=== PATIENT | male | born 1950 | race Caucasian/White ===

== ENCOUNTER 2016-07-24 14:03 | Emergency (ER) | payer MEDICARE, OTHER ==
[~2016-07-24] VITALS: Ht 172.7 cm; Wt 132.7 kg
[~2016-07-24 14:03] MED LIST: ALBU6.7H INH; CHOL100055 PO; CYCL5TAB PO; DABI150C PO; DICL100G5 TOP; DOXA4TAB3 PO; DULO60CA56 PO; FURO20TA4 PO; LOVA20TA71 PO; MELO-28 PO; METF10002 PO; POTA10TA14 PO
[2016-07-24 14:05] VITALS: Ht 172.7 cm; Wt 132.7 kg
--- OUTSIDE RECORDS SUMMARY | 2016-07-24 14:07 | XMS REPORT ---
Author Author Re Prince Organization [employer] Address Unknown Phone Unavailable Care Team Providers Care Supervisor [employer]ery [employer] Name Role Phone Re Prince CP Unavailable Allergies No Known Allergies Problems Problem Type Condition Code Onset Dates Condition Status Problem Diabetes Mellitus Type 2, not stated as uncontrolled 250.00 Active Problem Unspecified otitis media 382.9 Active Problem Other and unspecified hyperlipidemia 272.4 Active Problem Myalgia M79.1 Active Problem Type 2 diabetes mellitus without complications E11.9 Active Problem Right sided sciatica M54.31 Active Problem Other hyperlipidemia E78.4 Active Problem Other myositis, unspecified site M60.80 Active Problem Essential (primary) hypertension I10 Active Problem Other chronic pain G89.29 Active Problem Depressive disorder, not elsewhere classified 311 Active Problem Other and unspecified hyperlipidemia 272.4 Active Problem Other chronic pain 338.29 Active Problem Fibromyalgia 729.1 Active Problem Hypertension, benign 401.1 Active Medications Medication Code System Code Instructions Start Date End Date Status Dosage Hydrocodone-Acetaminophen [facility] [address]-21 5-325 MG Orally every 12 hrs Jan 31, 2016 Feb 20, 2016 1 tablet as needed Results No Known Results Summary Purpose eClinicalWorks Submission
--- OUTSIDE RECORDS SUMMARY | 2016-07-24 14:07 | XMS REPORT ---
Author Author Mikayla Lagos [facility] eClinical[employer] Address Unknown Phone Unavailable Care Team Providers Care Industrial Chemist Name Role Phone Mikayla Lagos Unavailable Allergies, Adverse Reactions, Alerts Substance Reaction Event Type peniciliin Info Not Available Non Drug Allergy Problems Problem Type Condition Code Onset Dates [...] Problem Other and unspecified hyperlipidemia 272.4 Active Assessment Right sided sciatica M54.31 Active Problem Other chronic pain 338.29 Active Problem Fibromyalgia 729.1 Active Problem Hypertension, benign 401.1 Active Medications Medication Code System Code Instructions Start Date End Date Status Dosage Voltaren [facility] [address]-56 1 % Transdermal up to QID prn Nov 15, 2015 Mar 14, 2016 2-4 grams Doxazosin Mesylate [facility] [address]-70 4MG Orally Once a day June 05, 2014 1 tablet PredniSONE [facility] [address]-01 20 MG Orally Once a day with food or milk Jan 31, 2016 Feb 09, 2016 3 tabs x1 day then 2 tabs x3 days 1 tab x3 days 1/2 tab x 2 days then stop Lovastatin [facility] [address]-10 20MG Orally Once a day 1 tablet with a meal Furosemide [facility] [address]-06 20 MG Orally Once a day August 19, 2014 1 tab Cymbalta [facility] [address]-87 60 MG Orally Once a day June 06, 2012 1 capsule Cyclobenzaprine HCl [facility] [address]-00 5 MG Orally twice a day as needed Jan 31, 2016 Mar 31, 2016 1-2 tabs BID prn Triamcinolone Acetonide [facility] [address]-38 0.5 % Externally Twice a day Dec 10, 2013 1 application to affected area Labetalol HCl [facility] [address]-30 100 MG Orally BID 1 tab Metformin HCl [facility] [address]-51 1000 MG Orally Twice a day Feb 18, 2014 1 tablet with meals ProAir HFA [facility] [address]-68 108 (90 Base) MCG/ACT Inhalation every 4-6 hrs July 14, 2015 2 puffs as needed Pradaxa [facility] [address]-62 150 MG Orally Twice a day 1 capsule Triamcinolone Acetonide [facility] 69907784983 0.5% Externally Twice a day 1 application to affected area Hydrocodone-Acetaminophen [facility] [address]-81 5-325 MG Orally every 12 hrs Jan 31, 2016 Feb 10, 2016 1 tablet as needed Procedures Procedure Coding System Code Date OFFICE VISIT, EST-LOW COMPLEXITY (15 MIN.) CPT-4 90483 Jan 31, 2016 [facility] visit Established Patient CPT-4 G0467 Jan 31, 2016 Vital Signs Date/Time: Jan 31, 2016 Temperature 98.4 F Height 67.5 in Weight 286.0 lbs Blood Pressure Diastolic 94 mm Hg Blood Pressure Systolic 170 mm Hg Cardiac Monitoring Heart Rate 78 /min BMI 44.13 Index Oximetry 98 % Respiratory Rate 16 /min Results No Known Results Summary Purpose eClinicalWorks Submission
--- OUTSIDE RECORDS SUMMARY | 2016-07-24 14:08 | XMS REPORT ---
Author Author Mikayla Lagos [facility] eClinicalWorks Address Unknown Phone Unavailable Care Team Providers Care Electron Microscopist Name Role Phone Mikayla Lagos Unavailable Allergies No Known Allergies Problems Problem Type Condition Code Onset Dates Condition Status Problem Hypertension, benign 401.1 Active Problem Other and unspecified hyperlipidemia 272.4 Active Problem Diabetes Mellitus Type 2, not stated as uncontrolled 250.00 Active Problem Type 2 diabetes mellitus without complications E11.9 Active Problem Essential (primary) hypertension I10 Active Problem Myalgia M79.1 Active Problem Other myositis, unspecified site M60.80 Active Problem Unspecified otitis media 382.9 Active Problem Other chronic pain G89.29 Active Problem Other hyperlipidemia E78.4 Active Problem Fibromyalgia 729.1 Active Problem Depressive disorder, not elsewhere classified 311 Active Problem Other and unspecified hyperlipidemia 272.4 Active Problem Other chronic pain 338.29 Active Medications No Known Medications Results No Known Results Summary Purpose eClinicalWorks Submission
--- OUTSIDE RECORDS SUMMARY | 2016-07-24 14:08 | XMS REPORT ---
Author Author Mikayla Lagos [facility] eClinicalWorks Address Unknown Phone Unavailable Care Team Providers Care Wreath And Garland Maker Name Role Phone Mikayla Lagos Unavailable Allergies [...] Instructions Start Date End Date Status Dosage Metformin HCl [facility] [address]-90 1000 MG Orally Twice a day Feb 18, 2014 1 tablet with meals Results No Known Results Summary Purpose eClinicalWorks Submission
--- OUTSIDE RECORDS SUMMARY | 2016-07-24 14:09 | XMS REPORT | Continuity of Care Document ---
Author Author [facility] Organization [facility] Address Unknown Phone Unavailable Support Name Relationship Address Phone RENALDO MONAE APRN Caregiver [address] [place] [address] Unavailable DANA DREW MD Caregiver [address] [place] [address] [place] [address] Unavailable NISH KERN Next Of Kin Unknown [phone] Insurance Providers Guarantor Luc Kern Address [address] [place] [address] Email [email or web address] Payer Medicare Policy Number [id number] Subscriber's Name Luc Kern Relationship 18 Self Payer Other A Insurance Policy Number [id number] Subscriber's Name Luc Kern Relationship 18 Self Group Number [id number] Advance Directives Directive Response Recorded Date/Time Advanced Directives Type DPOA for Healthcare 01/22/16 10:52am Ordered Resuscitation Status Full Code 08/04/13 4:44pm Chief Complaint and Reason for Visit Chief Complaint Fever Reason for Visit [id number] Problems Active Problems Medical Problem Onset Date Status Suspected DVT (deep vein thrombosis) Unknown Systemic inflammatory response syndrome Unknown Acute Urinary tract infection Unknown Acute Viral syndrome Unknown Acute Past Problems Medical Problem Onset Date Chronic pain of left knee Unknown Syncope Unknown Medications Current Home Medications Medication Dose Units Route Directions Days Qty Instructions Start Date Albuterol Sulfate (Proventil Hfa 90 Mcg/Actuation) 200 Puff/6.7 G Inha 1 Puff Inhalation Every 4 Hours as needed for Shortness Of Air/Wheezing 09/16/15 Cholecalciferol (Vitamin D3) (Vitamin D) 1,000 Unit Capsule 1,000 Unit Oral Daily 09/16/15 Cyclobenzaprine Hcl 5 Mg Tablet 5 Mg Oral Twice A Day as needed for Prn Orders 01/22/16 Dabigatran Etexilate Mesylate (Pradaxa) 150 Mg Capsule 150 Mg Oral Twice A Day 01/22/16 Diclofenac Sodium (Voltaren) 100 Gm Gel..gram. 1 Applic Topically As Needed 09/16/15 Doxazosin Mesylate 4 Mg Tablet 4 Mg Oral Daily 08/04/13 Duloxetine Hcl 60 Mg Capsule.dr 60 Mg Oral Daily 01/22/16 Furosemide 20 Mg Tablet 20 Mg Oral Daily 09/16/15 Lovastatin 20 Mg Tablet 20 Mg Oral Daily 08/04/13 Meloxicam (Mobic) 7.5 Mg Tablet 7.5 Mg Oral Twice A Day 08/04/13 Metformin Hcl 1,000 Mg Tablet 1,000 Mg Oral Twice A Day 10/06/15 Potassium Chloride 10 Meq Tablet.er 10 Meq Oral Daily 10/06/15 Social History Social History Problem Response Recorded Date/Time Onset Date Status Chewing Tobacco Status No 08/05/2013 11:11am Not Applicable Not Applicable Hx Substance Use No 10/06/2015 3:25pm Not Applicable Not Applicable Hx Alcohol Use Y COUPLE TIMES/MONTH 10/06/2015 3:25pm Not Applicable Not Applicable Has the pt used tobacco in the last 12 months No 09/16/2015 5:06pm Not Applicable Not Applicable Tobacco Usage none 09/17/2015 7:21am Not Applicable Not Applicable Query Response Start Date Stop Date Smoking Status Former smoker Hospital Discharge Instructions No hospital discharge instructions. Plan of Care Discharge Date 01/22/16 2:10pm Disposition 01 DISCHARGED HOME, SELF-CARE Condition at Discharge Improved Instructions/Education Provided DI for Viral Syndrome DI for Fever (Symptom) -- Adult Prescriptions See Medication Section Referrals RENALDO MONAE APRN Order Date: 3 Days Address: [address] [place] [address] [phone] Note: FOLLOW UP IN NEXT 2-3 DAYS FOR RE-EVALUATION Additional Instructions/Education 1) DRINK PLENTY OF FLUIDS 2) FOLLOW UP WITH [facility] (Celestino BROWNE) IN NEXT 3-4 DAYS FOR RE-EVALUATION AND FURTHER TREATMENT 3) RETURN TO ER NEEDED FOR WORSENING SYMPTOMS OR FURTHER CONCERNS Care Plan and Goals Physician Care Plan Problem: 1) MYALGIAS 2) LOW BACK PAIN WITH SCIATICA Goal: Follow up with primary care provider Instructions: Take medications and follow care plan as discussed/written Functional Status No functional status results. Allergies, Adverse Reactions, Alerts Allergen Type Severity Reaction Status Last Updated Penicillin Allergy Unknown "RED SKIN" Active 01/22/16 Immunizations Query Response on File Recorded Date/Time Hx Influenza Vaccination Y JAN 2015 09/16/15 5:06pm Hx Pneumococcal Vaccination No 09/16/15 5:06pm Hx Influenza Vaccination Y JAN 2015 09/16/15 5:06pm Vital Signs Acute Vital Signs Vital Response Date/Time Temperature (Fahrenheit) 98.4 deg F (96.8 - 99.1) 01/22/2016 10:40am Temperature (Calculated Celsius) 36.06702 degrees C (36.0 - 37.3) 01/22/2016 10:40am Pulse Rate (adult) 66 bpm (60 - 100) 01/22/2016 10:40am Respiratory Rate 20 breaths/min (10 - 20) 01/22/2016 1:30pm O2 Sat by Pulse Oximetry 97 % (90 - 100) 01/22/2016 10:40am Blood Pressure 184/98 mm Hg 01/22/2016 10:40am Height (Feet) 5 feet 01/22/2016 10:40am Height (Inches) 8.00 inches 01/22/2016 10:40am Weight (Kilograms) 130.300 kg 01/22/2016 10:40am Body Mass Index (BMI) 43.0 01/22/2016 10:40am Results Laboratory Results Test Name Result Units Flags Reference Collection Date/Time Result Date/ Time Comments White Blood Count 10.2 T/MM3 4.5-11.0 01/22/2016 11:19am 01/22/2016 11: 38am Red Blood Count 4.49 M/MM3 L 4.50-5.90 01/22/2016 11:19am 01/22/2016 11: 38am Hemoglobin 13.7 GM/DL 13.5-17.5 01/22/2016 11:19am 01/22/2016 11:38am Hematocrit 42.3 % 41-53 01/22/2016 11:19am 01/22/2016 11:38am Mean Corpuscular Volume 94.2 UM3 80-100 01/22/2016 11:19am 01/22/2016 11:38am Mean Corpuscular Hemoglobin 30.5 UUG 26-34 01/22/2016 11:19am 2015 11:38am Mean Corpuscular Hemoglobin Concent 32.4 GM/DL 31-37 01/22/2016 11:19am 01/22/2016 11:38am RDW Standard Deviation 43.0 FL 36.9-50.2 01/22/2016 11:am 01/22/2016 11:38am Platelet Count 294 T/MM3 130-400 01/22/2016 11:01/22/2016 11:38am Mean Platelet Volume 9.6 UM3 9.4-12.4 01/22/2016 11:am 01/22/2016 11: 38am Neutrophils (%) (Auto) 77.4 % H 33-66 01/22/2016 11:01/22/2016 11: 38am Lymphocytes (%) (Auto) 12.6 % L 23-45 01/22/2016 11:am 01/22/2016 11: 38am Monocytes (%) (Auto) 5.4 % 0-9.0 01/22/2016 11:am 01/22/2016 11:38am Eosinophils (%) (Auto) 4.4 % H 0-4 01/22/2016 11:01/22/2016 11: 38am Basophils (%) (Auto) 0.1 % 0-2 01/22/2016 11:01/22/2016 11:38am Immature Granulocyte % (Auto) 0.1 % 0.0-0.5 01/22/2016 11:am 2015 11:38am Absolute Neutrophils (auto) 7.9 T/MM3 H 1.8-7.7 01/22/2016 11:01/21 11:38am Absolute Lymphocytes (auto) 1.3 T/MM3 1-4.8 01/22/2016 11:am 2015 11:38am Absolute Monocytes (auto) 0.6 T/MM3 0-0.8 01/22/2016 11:am 2015 11:38am Absolute Eosinophils (auto) 0.5 T/MM3 0-0.5 01/22/2016 11:am 2015 11:38am Absolute Basophils (auto) 0.0 T/MM3 0-0.2 01/22/2016 11:am 2015 11:38am Absolute Immature Granulocyte (auto 0.01 T/MM3 0.00-0.03 01/22/2016 11: 19am 01/22/2016 11:38am Icterus Index < 2 0-7 01/22/2016 11:18am 01/22/2016 11:51am Chemistry Specimen Hemolysis < 15 0-25 01/22/2016 11:19am 01/22/2016 12:01pm 0-25: Specimen Exhibited No Hemolysis. Turbidity < 20 0-20 01/22/2016 11:18am 01/22/2016 11:51am Sodium Level 144 MEQ/L 134-144 01/22/2016 11:18am 01/22/2016 11:51am Potassium Level 4.7 MEQ/L 3.6-5 01/22/2016 11:18am 01/22/2016 11:51am Chloride Level 98 MEQ/L 98-107 01/22/2016 11:18am 01/22/2016 11:51am Carbon Dioxide Level 34 MEQ/L H 22-30 01/22/2016 11:18am 01/22/2016 11: 51am Anion Gap 12 MEQ/L 5-15 01/22/2016 11:18am 01/22/2016 11:51am Blood Urea Nitrogen 12.0 MG/DL 9-01/22/2016 11:18am 01/22/2016 11: 51am Creatinine 1.0 MG/DL 0.8-1.5 01/22/2016 11:18am 01/22/2016 11:51am BUN/Creatinine Ratio 12 RATIO 6-26 01/22/2016 11:18am 01/22/2016 11: 51am Glomerular Filtration Rate Calc 75 01/22/2016 11:18am 01/22/2016 11 :51am Glucose Level 135 MG/DL H 75-110 01/22/2016 11:18am 01/22/2016 11:51am Calculated Osmolality 279 MOSM/KG 261-280 01/22/2016 11:18am 2015 11:51am Calcium Level 9.0 MG/DL 8.4-10.2 01/22/2016 11:18am 01/22/2016 11:51am Total Bilirubin 0.40 MG/DL 0.20-1.30 01/22/2016 11:18am 01/22/2016 11: 51am Alkaline Phosphatase 80 U/L 38-126 01/22/2016 11:18am 01/22/2016 11: 51am Total Protein 6.4 G/DL 6.3-8.2 01/22/2016 11:18am 01/22/2016 11:51am Albumin 3.7 G/DL 3.5-5.0 01/22/2016 11:18am 01/22/2016 11:51am Globulin 2.7 G/DL 2.4-3.6 01/22/2016 11:18am 01/22/2016 11:51am Albumin/Globulin Ratio 1.4 RATIO 1.1-2.2 01/22/2016 11:18am 01/22/2016 11:51am Aspartate Amino Transf (AST/SGOT) 17 U/L 17-59 01/22/2016 11:18am 01/21 11:51am Alanine Aminotransferase (ALT/SGPT) 23 U/L 21-72 01/22/2016 11:18am 11:51am Troponin I < 0.012 ng/ml 0-0.12 01/22/2016 11:am 01/22/2016 12:01pm Troponin values with a difference of 55% increase from orginal troponin value represent a true biological DELTA value. (%increase Calc=Orginal Troponin value, divided by subsequent Troponin value, multiplied by 100) Plasma Lactate 1.6 MMOL/L 0.6-2.2 01/22/2016 11:19am 01/22/2016 11: 50am Procalcitonin < 0.05 NG/ML 01/22/2016 11:01/22/2016 12:07pm PCT </=0.5 ng/mL - sepsis not likely; PCT >0.5 and </=2 ng/mL - sepsis possible; PCT >2 ng/mL - sepsis likely; PCT >/=10 ng/mL - systemic inflammatory response - sepsis or septic shock highly indicated. Urine Collection Type [place] 01/22/2016 1:20pm 2015 1:40pm Urine Color YELLOW YELLOW 01/22/2016 1:20pm 01/22/2016 1:40pm Urine Turbidity CLEAR CLEAR 01/22/2016 1:20pm 01/22/2016 1:40pm Urine Specific [place] 1.010 L 1.015-1.025 01/22/2016 1:20pm 2015 1:40pm Urine pH 7.0 5.0-8.0 01/22/2016 1:20pm 01/22/2016 1:40pm Urine Leukocyte Esterase NEGATIVE NEGATIVE 01/22/2016 1:20pm 2015 1:40pm Urine Nitrite NEGATIVE NEGATIVE 01/22/2016 1:20pm 01/22/2016 1:40pm Urine Protein NEGATIVE NEGATIVE 01/22/2016 1:20pm 01/22/2016 1:40pm Urine Glucose (UA) NEGATIVE NEGATIVE 01/22/2016 1:20pm 01/22/2016 1: 40pm Urine Ketones NEGATIVE NEGATIVE 01/22/2016 1:20pm 01/22/2016 1:40pm Urine Urobilinogen 0.2 EU/DL NORMAL 01/22/2016 1:20pm 01/22/2016 1: 40pm Urine Bilirubin NEGATIVE NEGATIVE 01/22/2016 1:20pm 01/22/2016 1: 40pm Urine Blood NEGATIVE NEGATIVE 01/22/2016 1:20pm 01/22/2016 1:40pm Urinalysis Comment MICROSCOPIC NOT IND. 01/22/2016 1:20pm 2015 1:40pm Glucometer 118 mg/dL H 75-110 01/22/2016 11:15am 01/22/2016 11:23am Microbiology Results Procedure Source Organism/Result Collection Date/Time Result Date/Time Result Status Blood Culture Peripheral/Iv Start CULTURE INITIATED - RESULTS PENDING 01/21 11:19am 01/22/2016 11:35am Preliminary Procedures No known history of procedures. Encounters Encounter Location Arrival/Admit Date Discharge/Depart Date Attending Provider Departed Emergency Room [facility] 01/22/16 10:34am 01/22/16 2: 10pm DANA DREW MD Recent Diagnosis
--- NOTE | 2016-07-24 14:25 | NUR ---
PHYSICIAN DR. CAMEJO AT BEDSIDE TO EXAMINE Pt.
[2016-07-24] MEDS ORDERED: MORPHINE SULFATE 4 MG SYRINGE IM ONE (14:30)
[2016-07-24] MEDS ORDERED: ONDANSETRON ODT 4 MG TAB PO ONE (14:30)
--- NOTE | 2016-07-24 15:03 | DI ---
Indication: ITS.REASON: Fall; pain Procedure: SHOULDER RIGHT 2-3 VIEWS: Encounter: Initial Comparison: Chest radiographs 01/22/2016 Technique: Three views of the right shoulder were obtained Findings: Bony mineralization is normal. The visualized osseous structures appear intact with no acute fracture identified. Degenerative arthrosis of the acromioclavicular and glenohumeral joints. The visualized ribs appear intact. The visualized lung appears clear. No focal radiographically apparent soft tissue swelling. No radiopaque foreign body. Impression: Degenerative arthrosis with no acute fracture or malalignment appreciated. .
--- NOTE | 2016-07-24 15:05 | ERPDOC ---
Departure Disposition Decision Date: July 24, 2016 Disposition Decision Time: 15:42 Disposition: 01 DISCHARGED HOME, SELF-CARE Impression Impression Impression: Primary Impression: Shoulder pain, right Chronicity: acute Qualified Codes: M25.511 - Pain in right shoulder Severity: Severe Condition: Improved Seen By: Physician only Referrals: RENALDO MONAE APRN (Family) 1 Week Patient Instructions: Fall Prevention (ED), Shoulder Pain (ED) Problems/Meds/Labs Reviewed?: Yes Medications reviewed and manag: Yes Additional Instructions: We did not find a fracture or evidence of dislocation today. Take naproxen and the muscle relaxer as needed for pain. Ice or heat may also help. Follow up with your doctor. Consider ways to declutter your office and reduce the tripping hazard. Follow up care ordered?: Yes Mental Status: Alert, Oriented Scripts Cyclobenzaprine HCl (Cyclobenzaprine HCl) 10 Mg Tablet 10 MG PO TID Y for MUSCLE SPASM, #40 TAB 0 Refills Prov: JULYHEIDI DO 07/24/16 HPI - Fall/Injury General Chief Complaint: Fall Stated Complaint: FALL/HURT R ARM AND SHOULDER Time Seen by Provider: 14:12 Source: patient Exam Limitations: no limitations HPI - Fall/Injury Initial Comments 66yo man presents to the ER today with right shoulder pain. Pt was working in his study today, tripped over some books, and landed on his right side. Now he has right shoulder pain; he holds his arm against his side to prevent movement and pain. Has fallen several times in his study - says that he frequently knocks over stacks of books Occurred At: home Onset: Rapid Duration: 1 hr Pain Scale: Now & Worst: 8/10 Severity: severe Injuries/Pain Location: upper extremity Context: tripped Loss of Consciousness: no loss of consciousness Modifying Factors: IMPROVES WITH: cold therapy, immobilization, pain medication , WORSE WITH: jarring, movement Associated Symptoms: denies symptoms Hx of Similar Symptoms: No Allergies: Coded Allergies: Penicillins (Verified Allergy, Unknown, "RED SKIN", 07/24/16) Past History Past Medical History Metabolic: diabetes, hypercholesterolemia, hypertension ENMT: sleep apnea Respiratory: COPD, asthma GI: other Male: BPH, kidney stones Neurological: fibromyalgia Musculoskeletal: osteoarthritis Psychological: depression Surgical History General: appendix, colonoscopy, tonsils Reproductive/: other Family History Family PMH: FOUND: other Vaccines Hx Influenza Vaccination: Yes (JAN 2015) Hx Pneumococcal Vaccination: No Social History Sexuality: female partner Household Members: spouse Review of Systems Musculoskeletal General: joint pain, joint swelling, tenderness (Point TTP over AC joint) All other Systems All Other Systems: Reviewed and Negative Physical Exam General General Nourishment: well nourished, well developed, appears stated age, no acute distress, adult, obese General Body Habitus: disheveled Vitals and Pain Weight: Kilograms: 132.700 Height (feet): 5 Height (inches): 8.00 Triage Pain Scale: RN VS reviewed by Provider: Yes Musculoskeletal (brief) Musculoskeletal Brief: FOUND: spasm, tenderness (Over AC joint), NOT FOUND: deformity, loss of motion Musculoskeletal Joint : Side: Right Joint: shoulder Joint Findings: FOUND: ROM limited (2/2 pain), pain, NOT FOUND: deformity, discoloration, instability, laceration, swelling Supervisory Exam Head: atraumatic Eyes: PERRL Nares: no exudate Neck: trachea midline Chest: symmetric Abdomen: non-distended Neurological: no abnormal movements Skin: pink, dry Psychological: alert, appropriate Differential Diagnoses Considering: Contusion, Dislocation, Fracture, Sprain, Strain Progress Results/Orders Orders Procedure Category Date Status Time Morphine Sulfate PHA 07/24/16 Complete (Morphine) 14:30 Ondansetron Odt PHA 07/24/16 Complete (Zofran Odt) 14:30 Shoulder Right 2-3 RAD 07/24/16 Resulted Views 14:28 Humerus Right 2 View RAD 07/24/16 Resulted 15:12 Medications Current ED Medications Morphine Sulfate (Morphine) 4 mg O ONCE IM Last administered on 07/24/16 14:39 ; Start 07/24/16 at 14:30; Stop 07/24/16 at 14:31; Status DC Ondansetron HCl (Zofran Odt) 4 mg O ONCE PO Last administered on 07/24/16 14: 39; Start 07/24/16 at 14:30; Stop 07/24/16 at 14:31; Status DC Progress Progress No acute fx or dislocation. Discussed dx, prognosis, tx, and need for f/u with pt, who voiced understanding. F/u with PCM. Xray Xray #1: Xray: Shoulder R Interpretation: Normal (AC arthrosis without fx or dislocation), Reviewed Written Report Xray #2: Xray: Humerus R Interpretation: Normal, Reviewed Written Report HEIDI CAMEJO DO July 24, 2016 15:05 Written Report Xray #2: Xray: Humerus R Interpretation: Normal, Reviewed Written Report HEIDI CAMEJO DO July 24, 2016 15:05
--- NOTE | 2016-07-24 15:25 | NUR ---
RADIOLOGY Pt TO RADIOLOGY VIA CART.
--- NOTE | 2016-07-24 15:37 | DI ---
Indication: ITS.REASON: fall with pain Procedure: HUMERUS RIGHT 2 VIEW: Encounter: Initial Comparison: Right shoulder radiographs of the same day Technique: Two views of the right humerus were obtained Findings: Bony mineralization is normal. The visualized osseous structures appear intact with no acute fracture identified. The joint spaces are maintained. No focal radiographically apparent soft tissue swelling. No radiopaque foreign body. Impression: No acute fracture or malalignment identified. .
[2016-07-24] MEDS ORDERED: CYCL-375 PO (15:44)
[2016-07-24 15:57] VITALS: BP 149/88; PULSE 78; RESP 16; TEMP 98.2; O2SAT 96
--- NOTE | 2016-07-24 15:57 | NUR ---
DISMISSAL DISMISSAL INSTRUCTIONS WITH RX FOR FLEXERIL 10MG PO. NO FURTHER QUESTIONS AT THIS TIME. PT REPORTS THE PAIN IS A LITTLE BETTER AFTER INJECTIONS. PT LEFT DEPARTMENT AMBUALTORY WITH
== END 2016-07-24 15:57 | disposition home or self-care (01) ==
LOC: ED 14:03
DX: M25.511 Pain in right shoulder (principal); W01.0XXA Fall on same level from slipping, tripping and stumbling without subsequent striking against object, initial encounter; Y93.89 Activity, other specified; Y92.018 Other place in single-family (private) house as the place of occurrence of the external cause; Y99.8 Other external cause status
CPT/HCPCS: 73030; 73060; 96372; 99283; A9270

== ENCOUNTER 2016-12-23 13:36 | Inpatient (IN) ==
--- OUTSIDE RECORDS SUMMARY | 2016-12-23 13:59 | External Medical Summary ---
:1950 Author Organization [employer] Care Team Providers Name Role Phone Demond, Mikayla Provider Role Unavailable Allergies No Known Allergies Problems Problem Type Condition Code Onset Dates Condition Status Problem Other chronic pain 338.29 Active Problem Diabetes Mellitus Type 2, not stated 250.00 Active as uncontrolled Problem Hypertension, benign 401.1 Active Problem Essential (primary) hypertension I10 Active Problem Other chronic pain G89.29 Active Problem Type 2 diabetes mellitus without E11.9 Active complications Problem Unspecified otitis media 382.9 Active Problem Other and unspecified hyperlipidemia 272.4 Active Problem Other hyperlipidemia E78.4 Active Problem Other myositis, unspecified site M60.80 Active Problem Fibromyalgia 729.1 Active Problem Depressive disorder, not elsewhere 311 Active classified Problem Other and unspecified hyperlipidemia 272.4 Active Medications No Known Medications Results No Known Results Summary Purpose [employer] Submission
--- OUTSIDE RECORDS SUMMARY | 2016-12-23 13:59 | External Medical Summary ---
:1950 Author Organization [employer]Works Care Team Providers Name Role Phone Demond Mikayla Provider Role Unavailable Allergies, Adverse Reactions, Alerts Substance Reaction Event Type N.K.D.A. Info Not Available Non Drug Allergy Problems Problem Type Condition Code Onset Dates Condition Status Problem Other chronic pain 338.29 Active Problem Diabetes Mellitus Type 2, not 250.00 Active stated as uncontrolled Problem Hypertension, benign 401.1 Active Problem Essential (primary) hypertension I10 Active Problem Other chronic pain G89.29 Active Problem Type 2 diabetes mellitus without E11.9 Active complications Problem Unspecified otitis media 382.9 Active Problem Other and unspecified 272.4 Active hyperlipidemia Problem Other hyperlipidemia E78.4 Active Problem Other myositis, unspecified site M60.80 Active Assessment Other nonspecific lymphadenitis I88.8 Active Assessment Pain in right shoulder M25.511 Active Problem Fibromyalgia 729.1 Active Assessment encounter for immunization z23 Active Problem Depressive disorder, not elsewhere 311 Active classified Assessment Osteoarthritis of knee, unspecified M17.9 Active Problem Other and unspecified 272.4 Active hyperlipidemia Medications Medication Code Code Instructions Start End Status Dosage System Date Date Meloxicam NDC 49043-7 7.5 MG Orally Jan 19, 1 tablet 234-01 Twice a day 2015 Lovastatin NDC 73311-1 20MG Orally 1 tablet with 928-06 Once a day a meal Cymbalta NDC 80819-0 60 MG Orally May 24 capsule 237-01 Once a day 2012 Doxazosin NDC 84860-3 4MG Orally Once May 24 tablet Mesylate 123-01 a day 2014 Tramadol HCl NDC 36990-6 50 MG Orally Apr 26, 1 tablet as 058-01 BID if needed 2015 needed Metformin HCl NDC 09437-2 1000 MG Orally Feb 18, 1 tablet with 214-01 Twice a day 2013 meals Klor-Con M20 NDC 92835-5 20 MEQ Orally Jan 25, Jan 19, 1 tablet 058-01 Once a day 2014 2015 Furosemide NDC 47660-5 40 MG Orally August 19, 1 tablet in am 299-25 Twice a day 2014 and 1/2 in early afternoon Aspirin NDC 47844-6 325 MG Orally 1 tablet 416-78 Once a day Triamcinolone NDC 50205-5 0.5 % Dec 10, application Acetonide 002-15 Externally 2013 to affected Twice a day area Procedures Procedure Coding System Code Date OFFICE VISIT, EST-LOW COMPLEXITY (15 MIN.) CPT-4 93578 Feb 25, 2015 [facility] visit Established Patient CPT-4 G0467 Feb 25, 2015 Vital Signs Date/Time: Feb 25, 2015 Height 67.5 in Weight 291.12 lbs Temperature 97.9 F Blood Pressure Diastolic 90 mm Hg Blood Pressure Systolic 132 mm Hg Cardiac Monitoring Heart Rate 80 /min BMI 44.92 Index Respiratory Rate 18 /min Results No Known Results Summary Purpose eClinicalWorks Submission
--- OUTSIDE RECORDS SUMMARY | 2016-12-23 13:59 | External Medical Summary ---
:1950 Author Organization [employer] Care Team Providers Name Role Phone Demond, [...] Medications Results No Known Results Summary Purpose [employer] Submission
--- OUTSIDE RECORDS SUMMARY | 2016-12-23 13:59 | External Medical Summary ---
:1950 Author Organization [employer] Care Team Providers Name Role Phone Demond Mikayla Provider Role Unavailable Allergies No Known Allergies Problems Problem Type Condition Code Onset Dates Condition Status Problem Fibromyalgia 729.1 Active Problem Other and unspecified hyperlipidemia 272.4 Active Problem Diabetes Mellitus Type 2, not stated 250.00 Active as uncontrolled Problem Unspecified otitis media 382.9 Active Problem Other and unspecified hyperlipidemia 272.4 Active Problem Depressive disorder, not elsewhere 311 Active classified Problem Hypertension, benign 401.1 Active Problem Other chronic pain 338.29 Active Medications Medication Code System Code Instructions Start Date End Date Status Dosage Cymbalta [facility] 77458-417 60 MG Orally Once June 06 capsule 7-01 a day 2012 Results No Known Results Summary Purpose [employer] [facility] [employer] Submission
--- OUTSIDE RECORDS SUMMARY | 2016-12-23 13:59 | External Medical Summary ---
:1950 Author Organization [employer] Care Team Providers Name Role Phone Demond [...] Instructions Start Date End Date Status Dosage Meloxicam [facility] [address] 7.5 MG Orally Apr 07, 1 tablet -01 Twice a day 2016 Results No Known Results Summary Purpose [employer] Submission
--- OUTSIDE RECORDS SUMMARY | 2016-12-23 13:59 | External Medical Summary ---
:1950 Author Organization [employer] Care Team Providers Name Role Phone Demond, Mikayla Provider Role Unavailable Allergies No Known Allergies Problems Problem Type Condition ICD-9 Code Onset Dates Condition Status Problem Other and unspecified 272.4 Active hyperlipidemia Problem Diabetes Mellitus Type 2, not 250.00 Active stated as uncontrolled Problem Unspecified otitis media 382.9 Active Problem Other and unspecified 272.4 Active hyperlipidemia Problem Hypertension, benign 401.1 Active Problem Other chronic pain 338.29 Active Medications Medication Code System Code Instructions Start End Date Status Dosage Date Tramadol HCl [facility] 185[address]-059 50 MG Orally May 13, Active 1-2 tablets 8-01 every 6 hrs 2014 Vital Signs Date/Time: Dec 10, 2013 Height 67.5 inches Weight 322.8 lbs Temperature 97.9 F Blood Pressure Diastolic 84 mm Hg Blood Pressure Systolic 144 mm Hg Cardiac Monitoring Heart Rate 88 Beats per Minute BMI 49.81 Index Respiratory Rate 16 per Minute Results No Known Results Summary Purpose [employer]ClinicalWorks Submission
--- OUTSIDE RECORDS SUMMARY | 2016-12-23 13:59 | External Medical Summary ---
:1950 Author Organization [employer]ClinicalWorks Care Team Providers Name Role Phone Demond Mikayla Provider Role Unavailable Allergies No Known Allergies Problems Problem Type Condition ICD-9 Code Onset Dates Condition Status Problem Fibromyalgia 729.1 Active Problem Other and unspecified 272.4 Active hyperlipidemia Problem Diabetes Mellitus Type 2, not 250.00 Active stated as uncontrolled Problem Unspecified otitis media 382.9 Active Problem Other and unspecified 272.4 Active hyperlipidemia Problem Depressive disorder, not 311 Active elsewhere classified Problem Hypertension, benign 401.1 Active Problem Other chronic pain 338.29 Active Medications Medication Code System Code Instructions Start Date End Date Status Dosage Flexeril [facility] 301[address]-359 10 MG Orally Once June 26, Oct 24, 1.5 tablet 1-15 a day 2013 2013 Results No Known Results Summary Purpose [employer]ClinicalWorks Submission
--- OUTSIDE RECORDS SUMMARY | 2016-12-23 13:59 | External Medical Summary ---
:1950 Author Organization [employer]ClinicalWorks Care Team Providers Name Role Phone Mikayla Lagos Provider Role Unavailable Allergies No Known Allergies Problems Problem Type Condition ICD-9 Code Onset Dates Condition Status Assessment Viral gastroenteritis 009.3 Active Problem Fibromyalgia 729.1 Active Assessment Other malaise and fatigue 780.79 Active Assessment Hypertension, benign 401.1 Active Problem Other and unspecified 272.4 Active hyperlipidemia Problem Diabetes Mellitus Type 2, not 250.00 Active stated as uncontrolled Problem Unspecified otitis media 382.9 Active Problem Other and unspecified 272.4 Active hyperlipidemia Problem Depressive disorder, not 311 Active elsewhere classified Problem Hypertension, benign 401.1 Active Problem Other chronic pain 338.29 Active Medications Medication Code Code Instructions Start End Status Dosage System Date Date Metformin HCl NDC 24228-9 1000 MG Orally Feb 18, 1 tablet with 214-01 Twice a day 2013 meals Meloxicam NDC 69877-0 7.5 TAKE ONE 228-49 TABLET BY MOUTH TWICE DAILY Triamcinolone NDC 40491-7 0.5 % Dec 10, application Acetonide 002-15 Externally 2013 to affected Twice a day area Zofran NDC 74125-7 4 MG Orally October 05 tab 446-00 every 4-6 hrs 2014 as needed Aspirin NDC 43267-1 325 MG Orally 1 tablet 416-78 Once a day Losartan NDC 63239-0 25 MG Orally May 20, 1 tablet Potassium 123-22 Once a day 2014 Furosemide NDC 65578-5 40 MG Orally August 19, 1 tablet in am 299-25 Twice a day 2014 and 1/2 in early afternoon Cymbalta NDC 42125-5 60 MG Orally May 24 capsule 237-01 Once a day 2012 Doxazosin NDC 80444-1 4MG May TAKE ONE Mesylate 123-01 2014 TABLET BY MOUTH ONCE DAILY Lovastatin NDC 40085-4 20MG Orally 1 tablet with 928-06 Once a day a meal Procedures Procedure Coding System Code Date COMPLETE CBC W/AUTO DIFF WBC CPT-4 11388 October 05, 2014 Results No Known Results Summary Purpose [employer]ClinicalWorks Submission
--- OUTSIDE RECORDS SUMMARY | 2016-12-23 13:59 | External Medical Summary ---
:1950 Author Organization eClinicalWorks Care Team Providers Name Role Phone Re Prince Provider Role Unavailable Allergies No Known Allergies Problems Problem Type Condition Code Onset Dates Condition Status Problem Diabetes Mellitus Type 2, not stated 250.00 Active as uncontrolled Problem Unspecified otitis media 382.9 Active Problem Other and unspecified hyperlipidemia 272.4 Active Problem Myalgia M79.1 Active Problem Type 2 diabetes mellitus without E11.9 Active complications Problem Right sided sciatica M54.31 Active Problem Other hyperlipidemia E78.4 Active Problem Other myositis, unspecified site M60.80 Active Problem Essential (primary) hypertension I10 Active Problem Other chronic pain G89.29 Active Problem Depressive disorder, not elsewhere 311 Active classified Problem Other and unspecified hyperlipidemia 272.4 Active Problem Other chronic pain 338.29 Active Problem Fibromyalgia 729.1 Active Problem Hypertension, benign 401.1 Active Medications Medication Code System Code Instructions Start End Date Status Dosage Date Hydrocodone-Tanmay [facility] 18308-320 5-325 MG Orally Jan 30, Feb 19, 1 tablet taminophen 5-01 every 12 hrs 2015 2015 as needed Results No Known Results Summary Purpose [employer]ClinicalWorks Submission
--- OUTSIDE RECORDS SUMMARY | 2016-12-23 13:59 | External Medical Summary ---
:1950 Author Organization [employer] Care Team Providers Name Role Phone Demond, [...] Medications Results No Known Results Summary Purpose [employer] Submission
--- OUTSIDE RECORDS SUMMARY | 2016-12-23 13:59 | External Medical Summary ---
:1950 Author Organization [employer] Care Team Providers Name Role Phone Demond, [...] Medications Results No Known Results Summary Purpose [employer] Submission
--- OUTSIDE RECORDS SUMMARY | 2016-12-23 13:59 | External Medical Summary ---
[...] Other myositis, unspecified site M60.80 Active Assessment Type 2 diabetes mellitus without E11.9 Active complications Problem Fibromyalgia 729.1 Active Problem Depressive disorder, not elsewhere 311 Active classified Assessment Other hyperlipidemia E78.4 Active Problem Other and unspecified hyperlipidemia 272.4 Active Medications Medication Code Code Instructions Start End Status Dosage System Date Date Tramadol HCl NDC 25312-3 50 MG Orally 1 tablet as 058-01 every 6 hrs needed Klor-Con M20 NDC 72784-1 20 MEQ Orally Jan 25, Jan 19, 1 tablet 058-01 Once a day 2014 2015 Cymbalta NDC 94862-7 60 MG Orally May 24 capsule 237-01 Once a day 2012 Triamcinolone NDC 86985-6 0.5 % Dec 10, 1 application Acetonide 002-15 Externally 2014 to affected Twice a day area Meloxicam NDC 16177-6 7.5 MG Orally Jan 19, 1 tablet 234-01 Twice a day 2015 Furosemide NDC 94890-6 40 MG Orally August 19, 1 tablet in am 299-25 Twice a day 2014 and 1/2 in early afternoon Lovastatin NDC 40952-9 20MG Orally 1 tablet with 928-06 Once a day a meal Doxazosin NDC 67343-3 4MG Orally Once May 24 tablet Mesylate 123-01 a day 2014 Aspirin NDC 12798-9 325 MG Orally 1 tablet 416-78 Once a day Metformin HCl [facility] 82836-1 1000 MG Orally Feb 18, 1 tablet with 214-01 Twice a day 2013 meals Procedures Procedure Coding System Code Date LIPID PANEL CPT-4 07803 Jan 27, 2015 CMP CPT-4 87463 Jan 27, 2015 Results No Known Results Summary Purpose [employer]ClinicalWorks Submission
--- OUTSIDE RECORDS SUMMARY | 2016-12-23 13:59 | External Medical Summary ---
[...] Other myositis, unspecified site M60.80 Active Assessment Pain in left knee M25.562 Active Problem Fibromyalgia 729.1 Active Problem Depressive disorder, not elsewhere 311 Active classified Problem Other and unspecified 272.4 Active hyperlipidemia Medications No Known Medications Results No Known Results Summary Purpose eClinicalWorks Submission
--- OUTSIDE RECORDS SUMMARY | 2016-12-23 13:59 | External Medical Summary | Referral Summary ---
:1950 Author Organization [facility] Address [address] [place] [address] Care Team Providers Name Role Phone DemondMikayla parson Primary Care Physician Encounter VC Date(s): 11/08/15 - 11/08/15 [facility] [address], [place] [address] Discharge Disposition: 01-Home or Self Care Attending Physician: Truong Greer MD Vital Signs Most recent to oldest [Reference Range]: 1 Peripheral Pulse Rate [60-100 bpm] 77 bpm (11/08/15 1:19 PM) Heart Rate Monitored [60-100 bpm] 76 bpm (11/08/15 2:29 PM) Respiratory Rate [14-20 br/min] 16 br/min (11/08/15 2:29 PM) Blood Pressure [90-140/60-90 mmHg] 132/72 mmHg (11/08/15 2:29 PM) SpO2 97 % (11/08/15 2:29 PM) Remote Telemetry Discontinued (11/08/15 2:29 PM) Problem List No data available for this section Allergies, Adverse Reactions, Alerts Substance Reaction Severity Status penicillin Active Medications aspirin 325 mg oral tablet 325 mg 1 tabs, Oral, Daily, # 30 tabs, 0 Refill(s) Start Date: 11/08/15 Status: OrderedCymbalta 60 mg oral delayed release capsule 60 mg 1 caps, Oral, Daily, do not crush or chew, 0 Refill(s) Start Date: 11/08/15 Status: Orderedfurosemide 40 mg oral tablet 40 mg 1 tabs, Oral, Daily, # 30 tabs, 0 Refill(s) Start Date: 11/08/15 Status: Orderedlovastatin 20 mg oral tablet 20 mg 1 tabs, Oral, Daily, # 30 tabs, 0 Refill(s) Start Date: 11/08/15 Status: Orderedmeloxicam 7.5 mg oral tablet 7.5 mg 1 tabs, Oral, Daily, # 30 tabs, 0 Refill(s) Start Date: 11/08/15 Status: OrderedmetFORMIN 1000 mg oral tablet 1,000 mg 1 tabs, Oral, BID, # 180 tabs, 0 Refill(s) Start Date: 11/08/15 Status: Orderedpotassium chloride 10 mEq oral tablet, extended release 10 mEq 1 tabs, Oral, BID, # 180 tabs, 0 Refill(s) Start Date: 11/08/15 Status: OrderedProAir HFA 90 mcg/inh inhalation aerosol 2 puffs, Inhalation, q4hr, as needed for wheezing, # 8.5 g, 0 Refill(s) Start Date: 11/08/15 Status: OrderedtraMADol 50 mg oral tablet 50 mg 1 tabs, Oral, q4hr, as needed for pain, 0 Refill(s) Start Date: 11/08/15 Status: OrderedVoltaren 1% topical gel 1 nicko, Topical, QID, # 100 g, 0 Refill(s) Start Date: 11/08/15 Status: Ordered Results No data available for this section Immunizations Vaccine Date Refusal Reason influenza virus vaccine, live 01/22/08 Procedures Procedure Date Related Diagnosis Body Site Tilt Table1 11/08/15 1auto-populated from documented surgical case Social History No data available for this section Assessment and Plan No data available for this section
--- OUTSIDE RECORDS SUMMARY | 2016-12-23 13:59 | External Medical Summary ---
:1950 Author Organization eClinicalWorks Care Team Providers Name Role Phone Mikayla Lagos Provider Role Unavailable Allergies, Adverse Reactions, Alerts [...] myositis, unspecified site M60.80 Active Assessment Other myositis, unspecified site M60.80 Active Assessment Other hyperlipidemia E78.4 Active Assessment Edema 782.3 Active Assessment Type 2 diabetes mellitus without E11.9 Active complications Problem Fibromyalgia 729.1 Active Assessment Other chronic pain G89.29 Active Problem Depressive disorder, not elsewhere 311 Active classified Assessment Essential (primary) hypertension I10 Active Problem Other and unspecified hyperlipidemia 272.4 Active Medications Medication Code Code Instructions Start End Status Dosage System Date Date Metformin HCl NDC 64231-5 1000 MG Orally Feb 18, tablet with 214- Twice a day 2013 meals Triamcinolone NDC 48061-3 0.5 % Dec 10 application Acetonide 002-15 Externally 2014 to affected Twice a day area Cymbalta NDC 40986-5 60 MG Orally May 24 capsule 237-01 Once a day 2012 Meloxicam NDC 51494-7 7.5 MG Orally Jan 19 tablet 234-01 Twice a day 2015 Klor-Con M20 NDC 90734-1 20 MEQ Orally Jan 25, Jan 19, tablet 058-01 Once a day 2014 2015 Doxazosin NDC 40361-1 4MG Orally Once May 24 tablet Mesylate 123-01 a day 2014 Aspirin NDC 57263-9 325 MG Orally 1 tablet 416-78 Once a day Tramadol HCl NDC 71004-1 50 MG Orally 1 tablet as 058-01 every 6 hrs needed Furosemide NDC 40683-2 40 MG Orally August 19, 1 tablet in am 299-25 Twice a day 2014 and 1/2 in early afternoon Lovastatin NDC 98754-4 20MG Orally 1 tablet with 928-06 Once a day a meal Procedures Procedure Coding System Code Date OFFICE VISIT, EST-LOW COMPLEXITY (15 MIN.) CPT-4 27304 Jan 25, 2015 HEMOGLOBIN A1C, IN HOUSE CPT-4 52959 Jan 25, 2015 [facility] Establ[facility] Patient CPT-4 G0467 Jan 25, 2015 Vital Signs Date/Time: Jan 25, 2015 Height 67.5 in Weight 303.4 lbs Temperature 98.8 F Blood Pressure Diastolic 82 mm Hg Blood Pressure Systolic 123 mm Hg Cardiac Monitoring Heart Rate 92 /min BMI 46.81 Index Respiratory Rate 14 /min Results Name Result Date Reference Range Unit Abnormality Flag In House HB A1c Summary Purpose eClinicalWorks Submission
--- OUTSIDE RECORDS SUMMARY | 2016-12-23 13:59 | External Medical Summary ---
:1950 Author Organization [employer] Care Team Providers Name Role Phone Demond [...] Start Date End Date Status Dosage Cymbalta [facility] 645[address]-109 60 MG Orally Once June 06 capsule 7-01 a day 2012 Results No Known Results Summary Purpose [employer] Submission
--- OUTSIDE RECORDS SUMMARY | 2016-12-23 13:59 | External Medical Summary ---
:1950 Author Organization [employer] Care Team Providers Name Role Phone Demond [...] Instructions Start Date End Date Status Dosage Furosemide [facility] [address] 40 MG Orally Once August 19, tablet -25 a day 2014 Results No Known Results Summary Purpose [employer] Submission
--- OUTSIDE RECORDS SUMMARY | 2016-12-23 13:59 | External Medical Summary ---
[...] Hypertension, benign 401.1 Active Medications Medication Code Code Instructions Start End Status Dosage System Date Date Rubi [facility] [address]-21 1 % Nov 14Feb 2-4 grams Transdermal up 2015, to QID prn [address] [facility] [address]-24 4MG Orally May 24 tablet Mesylate Once a day [address] [facility] [address]-43 20 MG Orally Jan 30, Jan 3 tabs x1 day Once a day 2015 16, then 2 tabs with food or 2015 x3 days 1 tab milk x3 days 1/2 tab x 2 days then stop Lovastatin [facility] [address]-90 20MG Orally 1 tablet with Once a day a meal Furosemide [facility] [address]-23 20 MG Orally August 19, 1 tab Once a day [address] [facility] [address]-25 60 MG Orally May 24 capsule Once a day [address] [facility] [address]-01 5 MG Orally Jan 30, Mar 1-2 tabs BID HCl twice a day as 2015 06, prn needed [address] [facility] [address]-50 0.5 % Sept 1 application Acetonide Externally 17, to affected Twice a day 2013 area Labetalol HCl [facility] [address]-72 100 MG Orally 1 tab BID Metformin HCl [facility] [address]-38 1000 MG Orally Feb 18, 1 tablet with Twice a day 2013 meals ProAir HFA [facility] [address]-15 108 (90 Base) June 25 puffs as MCG/ACT 20, needed Inhalation 2015 every 4-[address] [facility] [address]-06 150 MG Orally 1 capsule Twice a day Triamcinolone [facility] 67621036618 0.5% 1 application Acetonide Externally to affected Twice a day area Hydrocodone-Aceta [facility] [address]-59 5-325 MG Jan 30Jan 1 tablet as minophen Orally every 2015 17, needed 12 hrs 2016 Procedures Procedure Coding System Code Date OFFICE VISIT, EST-LOW COMPLEXITY (15 MIN.) CPT-4 20099 Jan 31, 2016 [facility] visit Established Patient CPT-4 G0467 Jan 31, [...]
--- OUTSIDE RECORDS SUMMARY | 2016-12-23 13:59 | External Medical Summary ---
[...] End Date Status Dosage Date Tramadol HCl [facility] 20003-366 50 MG Orally at June 06, Active 1-2 tablets 8-2014 Vital Signs Date/Time: Dec 10, 2013 Height 67.5 inches Weight 322.8 lbs Temperature 97.9 F Blood Pressure Diastolic 84 mm Hg Blood Pressure Systolic 144 mm Hg Cardiac Monitoring Heart Rate 88 Beats per Minute BMI 49.81 Index Respiratory Rate 16 per Minute Results No Known Results Summary Purpose eClinicalWorks Submission
--- OUTSIDE RECORDS SUMMARY | 2016-12-23 13:59 | External Medical Summary ---
[...] unspecified hyperlipidemia 272.4 Active Medications Medication Code System Code Instructions Start End Date Status Dosage Date Cholecalciferol [facility] 91621-78 [address] UNIT July 14September 12, capsule 62-01 Orally once a 2015 2015 WEEK for 8 weeks Results No Known Results Summary Purpose eClinicalWorks Submission
--- OUTSIDE RECORDS SUMMARY | 2016-12-23 13:59 | External Medical Summary ---
[...] Instructions Start End Date Status Dosage Date Metformin HCl [facility] 10734-257 1000 MG Orally Feb 18, 1 tablet 4-01 Twice a day 2013 with meals Results No Known Results Summary Purpose eClinicalWorks Submission
--- OUTSIDE RECORDS SUMMARY | 2016-12-23 13:59 | External Medical Summary ---
[...] Start End Status Dosage System Date Date Triamcinolone NDC 57450-7 0.5 % Dec 10, application Acetonide 002-15 Externally 2013 to affected Twice a day area Aspirin NDC 19311-0 325 MG Orally 1 tablet 416-78 Once a day Meloxicam NDC 74171-4 7.5 MG Orally Jan 19, 1 tablet 234-01 Twice a day 2015 Metformin HCl NDC 52897-0 1000 MG Orally Feb 18, 1 tablet with 214-01 Twice a day 2014 meals Doxazosin NDC 98560-9 4MG Orally Once May 24 tablet Mesylate 123-01 a day 2014 Furosemide NDC 68086-1 40 MG Orally August 19, 1 tablet in am 299-25 Twice a day 2014 and 1/2 in early afternoon Tramadol HCl NDC 43819-7 50 MG Orally 1 tablet as 058-01 every 6 hrs needed Lovastatin NDC 04208-0 20MG Orally 1 tablet with 928-06 Once a day a meal Cymbalta NDC 32371-9 60 MG Orally May 24 capsule 237-01 Once a day 2012 Klor-Con M20 [facility] 63749-1 20 MEQ Orally Jan 25, Jan 19, 1 tablet 058-01 Once a day 2014 2015 Procedures Procedure Coding System Code Date COMPLETE CBC W/AUTO DIFF WBC CPT-4 35786 Jan 27, 2015 Results No Known Results Summary Purpose eClinicalWorks Submission
--- OUTSIDE RECORDS SUMMARY | 2016-12-23 14:00 | External Medical Summary ---
:1950 Author Organization eClinicalWorks Care Team Providers Name Role Phone Demond Mikayla Provider Role Unavailable Allergies, Adverse Reactions, Alerts Substance Reaction Event Type Lortab upset stomach Drug Allergy Problems Problem Type Condition ICD-9 Code Onset Dates Condition Status Assessment Edema 782.3 Active Problem Fibromyalgia 729.1 Active Assessment Hypertension, benign 401.1 Active Assessment Hypertrophy (benign) of prostate 600.00 Active without urinary obstruction and other lower urinary tract symptoms [LUTS] Problem Other and unspecified 272.4 Active hyperlipidemia [...] Dosage System Date Date Tramadol HCl NDC 86688-2 50 MG Orally 1 tablet as 058-01 every 6 hrs needed Aspirin NDC 23972-1 325 MG Orally 1 tablet 416-78 Once a day Meloxicam NDC 25495-2 7.5 TAKE ONE 228-49 TABLET BY MOUTH TWICE DAILY Metformin HCl NDC 28464-3 1000 MG Orally Feb 18, 1 tablet with 214-01 Twice a day 2013 meals Doxazosin NDC 00805-7 4MG May TAKE ONE Mesylate 123-01 2014 TABLET BY MOUTH ONCE DAILY Lovastatin NDC 92396-9 20MG Orally 1 tablet with 928-06 Once a day a meal Furosemide NDC 10390-0 40 MG Orally August 19, 1 tablet in am 299-25 Twice a day 2014 and 1/2 in early afternoon Triamcinolone NDC 02654-7 0.5 % Dec 10, application Acetonide 002-15 Externally 2013 to affected Twice a day area Cymbalta NDC 21137-5 60 MG Orally May 1 capsule 237-01 Once a day 2012 Procedures Procedure Coding System Code Date OFFICE VISIT, EST-LOW COMPLEXITY (15 MIN.) CPT-4 05040 October 15, 2014 [facility] visit Established Patient CPT-4 G0467 October 15, 2014 Vital Signs Date/Time: October 15, 2014 Height 67.5 in Weight 300 lbs Temperature 97.8 F Blood Pressure Diastolic 70 mm Hg Blood Pressure Systolic 110 mm Hg Cardiac Monitoring Heart Rate 80 /min BMI 46.29 Index Respiratory Rate 22 /min Results No Known Results Summary Purpose eClinicalWorks Submission
--- OUTSIDE RECORDS SUMMARY | 2016-12-23 14:00 | External Medical Summary ---
[...] 2 diabetes mellitus without E11.9 Active complications Assessment Shortness of breath R06.02 Active Assessment Essential (primary) hypertension I10 Active Problem Fibromyalgia 729.1 Active Assessment Other hyperlipidemia E78.4 Active Problem Depressive disorder, not elsewhere 311 Active classified Assessment Other chronic pain G89.29 Active Problem Other and unspecified hyperlipidemia 272.4 Active Medications Medication Code Code Instructions Start End Date Status Dosage System Date Meloxicam NDC 61634-2 7.5 MG Orally Jan 19 tablet 234-01 Twice a day 2015 Triamcinolone NDC 10051-7 0.5 % Dec 10 application Acetonide 002-15 Externally 2013 to affected Twice a day area Tramadol HCl NDC 47555-9 50 MG Orally June 24 tablet as 058-01 BID if needed 2015 needed Doxazosin NDC 67825-0 4MG Orally Once May 24 tablet Mesylate 123-01 a day 2014 Furosemide NDC 26858-7 20 MG Orally August 19 in the 297-25 Twice a day as 2014 morning and needed mid-afternoon prn Voltaren NDC 12025-3 1 % Transdermal Apr 29October 11, 2-4 grams 215-05 QID prn 2015 2015 [place] [address]-1 60 MG Orally May 24 capsule 237-01 Once a day 2012 [place] [address]-1 108 (90 Base) June 25 puffs as 851-85 MCG/ACT 2015 needed Inhalation every 4-6 hrs [place] NDC 61920-8 20 MG Orally June 24 tablet 039-37 Once a day 2015 [place] [address]-6 1000 MG Orally Feb 18, 1 tablet with 214-01 Twice a day 2013 meals Lovastatin NDC 58913-3 20MG Orally 1 tablet with 928-06 Once a day a meal Procedures Procedure Coding System Code Date OFFICE VISIT, EST-MOD. COMPLEXITY (25 MIN) CPT-4 61616 July 14, 2015 [facility] visit Established Patient CPT-4 G0467 July 14, 2015 Vital Signs Date/Time: July 14, 2015 Temperature 97.7 F Height 97.5 in Weight 297.8 lbs Blood Pressure Diastolic 83 mm Hg Blood Pressure Systolic 124 mm Hg Cardiac Monitoring Heart Rate 91 /min BMI 22.02 Index Respiratory Rate 16 /min Results No Known Results Summary Purpose eClinicalWorks Submission
--- OUTSIDE RECORDS SUMMARY | 2016-12-23 14:00 | External Medical Summary ---
:1950 Author Organization [employer] Care Team Providers Name Role Phone Demond, [...] Medications Results No Known Results Summary Purpose [employer] Submission
--- OUTSIDE RECORDS SUMMARY | 2016-12-23 14:00 | External Medical Summary ---
[...] Active Assessment Other nonspecific lymphadenitis I88.8 Active Problem Fibromyalgia 729.1 Active Problem Depressive disorder, not elsewhere 311 Active classified Problem Other and unspecified hyperlipidemia 272.4 Active Medications Medication Code Code Instructions Start End Status Dosage System Date Date Meloxicam NDC 78448-8 7.5 MG Orally Jan 19, 1 tablet 234-01 Twice a day 2015 Metformin HCl NDC 41552-3 1000 MG Orally Feb 18, 1 tablet with 214-01 Twice a day 2014 meals Tramadol HCl NDC 66946-4 50 MG Orally Apr 26, 1 tablet as 058-01 BID if needed 2015 needed Furosemide NDC 44815-3 40 MG Orally August 19, 1 tablet in am 299-25 Twice a day 2014 and 1/2 in early afternoon Triamcinolone NDC 43249-2 0.5 % Dec 10, 1 application Acetonide 002-15 Externally 2014 to affected Twice a day area Cymbalta NDC 11973-6 60 MG Orally May 24 capsule 237-01 Once a day 2012 Klor-Con M20 NDC 94606-6 20 MEQ Orally Jan 25, Jan 19, 1 tablet 058-01 Once a day 2014 2015 Doxazosin NDC 28427-6 4MG Orally Once May 24 tablet Mesylate 123-01 a day 2014 Aspirin NDC 61508-1 325 MG Orally 1 tablet 416-78 Once a day Lovastatin [facility] 28238-1 20MG Orally 1 tablet with 928-06 Once a day a meal Procedures Procedure Coding System Code Date SED RATE CPT-4 43363 Feb 25, 2015 COMPLETE CBC W/AUTO DIFF WBC CPT-4 95323 Feb 25, 2015 Results No Known Results Summary Purpose eClinicalWorks Submission
--- OUTSIDE RECORDS SUMMARY | 2016-12-23 14:00 | External Medical Summary ---
[...] Start End Date Status Dosage System Date Metformin HCl NDC 20904-4 1000 MG Orally Feb 18, 1 tablet with 214-01 Twice a day 2013 meals Lovastatin NDC 24420-3 20MG Orally 1 tablet with 928-06 Once a day a meal Voltaren NDC 88443-2 1 % Transdermal Apr 29October 11, 2-4 grams 215-05 QID prn 2015 2015 Tramadol HCl NDC 49280-8 50 MG Orally June 24 tablet as 058-01 BID if needed 2015 needed Triamcinolone NDC 35099-4 0.5 % Dec 10 application Acetonide 002-15 Externally 2013 to affected Twice a day area [place]ardis NDC 58157-7 20 MG Orally June 24 tablet 039-37 Once a day 2015 Cymbalta NDC 61884-0 60 MG Orally May 24 capsule 237-01 Once a day 2012 Meloxicam NDC 80190-4 7.5 MG Orally Jan 19 tablet 234-01 Twice a day 2015 ProAir HFA [facility] 75704-8 108 (90 Base) June 25 puffs as 851-85 MCG/ACT 2015 needed Inhalation every 4-6 hrs Doxazosin [facility] 68546-3 4MG Orally Once May 24 tablet Mesylate 123-01 a day 2014 Furosemide [facility] 01571-4 20 MG Orally August 19, in the 297- Twice a day as 2014 morning and needed mid-afternoon prn Procedures Procedure Coding System Code Date VITAMIN D 25 HYDROXY CPT-4 49482 July 14, 2015 FOLATE- VIT B12 AND FOLATE CPT-4 48539 July 14, 2015 HEMOGLOBIN A1C, IN HOUSE CPT-4 90310 July 14, 2015 VITAMIN B12 CPT-4 67162 July 14, 2015 Results Name Result Date Reference Range Unit Abnormality Flag Vitamin D, 25-Hydroxy ----25-Hydroxy D Total 10 20150714 30-74 ng/mL L ----25-Hydroxy D2 <7 10456053 ng/mL ----25-Hydroxy D3 10 00718885 ng/mL In House HB A1c ----Hemoglobin A1c 7.0 78399885 Vitamin B12 and Folate ----Folate 10.2 39092106 7.0-31.4 ng/mL ----Vitamin B12 302 08274972 213-816 pg/mL Summary Purpose eClinicalWorks Submission
--- OUTSIDE RECORDS SUMMARY | 2016-12-23 14:00 | External Medical Summary ---
[...] lymphadenitis I88.8 Active Problem Fibromyalgia 729.1 Active Assessment Other hyperlipidemia E78.4 Active Problem Depressive disorder, not elsewhere 311 Active classified Assessment Essential (primary) hypertension I10 Active Problem Other and unspecified hyperlipidemia 272.4 Active Medications Medication Code Code Instructions Start End Status Dosage System Date Date Aspirin NDC 68505-0 325 MG Orally 1 tablet 416-78 Once a day Triamcinolone NDC 56973-6 0.5 % Dec 10, 1 application Acetonide 002-15 Externally 2013 to affected Twice a day area Klor-Con M20 NDC 51063-9 20 MEQ Orally Jan 25, Jan 19, 1 tablet 058-01 Once a day 2014 2015 Furosemide NDC 47838-1 40 MG Orally August 19, 1 tablet in am 299-25 Twice a day 2014 and 1/2 in early afternoon Voltaren NDC 02379-3 1 % Transdermal Apr 29August small amount 215-05 every 4 hours 2015 Metformin HCl NDC 50656-2 1000 MG Orally Feb 18, 1 tablet with 214-01 Twice a day 2013 meals Cymbalta NDC 59627-5 60 MG Orally May 24 capsule 237-01 Once a day 2012 Lovastatin NDC 96578-9 20MG Orally 1 tablet with 928-06 Once a day a meal Doxazosin NDC 54162-8 4MG Orally Once May 24 tablet Mesylate 123-01 a day 2014 Meloxicam NDC 07405-4 7.5 MG Orally Jan 19 tablet 234-01 Twice a day 2015 Procedures Procedure Coding System Code Date COMPREHENSIVE METABOLIC PANEL CPT-4 72925 Apr 29, 2015 SED RATE CPT-4 62623 Apr 29, 2015 COMPLETE CBC W/AUTO DIFF WBC CPT-4 57368 Apr 29, 2015 LIPID PANEL CPT-4 77033 Apr 29, 2015 TSH CPT-4 46750 Apr 29, 2015 Results No Known Results Summary Purpose eClinicalWorks Submission
--- OUTSIDE RECORDS SUMMARY | 2016-12-23 14:00 | External Medical Summary ---
:1950 Author Organization eClinicalWorks Care Team Providers Name Role Phone Demond Mikayla Provider Role Unavailable Allergies No Known Allergies Problems Problem Type Condition Code Onset Dates Condition Status Problem Hypertension, benign 401.1 Active Problem Other and unspecified hyperlipidemia 272.4 Active Problem Diabetes Mellitus Type 2, not stated 250.00 Active as uncontrolled Problem Type 2 diabetes mellitus without E11.9 Active complications Problem Essential (primary) hypertension I10 Active Problem [...]
--- OUTSIDE RECORDS SUMMARY | 2016-12-23 14:00 | External Medical Summary ---
[...] Other myositis, unspecified site M60.80 Active Assessment Abdominal pain in male R10.9 Active Problem Fibromyalgia 729.1 Active Problem Depressive disorder, not elsewhere 311 Active classified Assessment Acute cystitis with hematuria N30.01 Active Problem Other and unspecified hyperlipidemia 272.4 Active Medications Medication Code Code Instructions Start End Status Dosage System Date Date Furosemide NDC 17674-2 20 MG Orally August 19 in the 297-25 Twice a day as 2014 morning and needed mid-afternoon prn Ondansetron NDC 43339-5 4 MG Orally September 19 tab 301-19 every 4-6 hrs 2015 dissolved prn nausea Doxazosin NDC 74082-0 4MG Orally Once May 24 tablet Mesylate 123-01 a day 2014 ProAir HFA NDC 20575-7 108 (90 Base) June 25 puffs as 851-85 MCG/ACT 2015 needed Inhalation every 4-6 hrs Triamcinolone NDC 40113-1 0.5 % Dec 10 application Acetonide 002-15 Externally 2014 to affected Twice a day area Meloxicam NDC 22654-7 7.5 MG Orally Jan 19, tablet 234-01 Twice a day 2015 Potassium NDC 50931-6 20 MEQ Orally 1 tablet Chloride Lexii ER 718-01 Every other day Cipro NDC 86055-7 500 MG Orally 1 tablet 754-01 every 12 hrs Lovastatin NDC 41027-1 20MG Orally 1 tablet with 928-06 Once a day a meal Cymbalta NDC 29262-0 60 MG Orally May 1 capsule 237-01 Once a day 2012 Metformin HCl NDC 33008-4 1000 MG Orally Feb 18, 1 tablet with 214-01 Twice a day 2013 [place] [address]-8 1 % Transdermal Apr 29September 2-4 grams 215-05 QID prn 2015 Procedures Procedure Coding System Code Date [facility] visit Established Patient CPT-4 G0467 September 20, 2015 OFFICE VISIT, EST-LOW COMPLEXITY (15 MIN.) CPT-4 75212 September 20, 2015 URINALYSIS, IN HOUSE CPT-4 55719 September 20, 2015 Vital Signs Date/Time: September 20, 2015 Temperature 99.1 F Height 97.5 in Weight 292.8 lbs Blood Pressure Diastolic 80 mm Hg Blood Pressure Systolic 150 mm Hg Cardiac Monitoring Heart Rate 92 /min BMI 21.65 Index Respiratory Rate 16 /min Results Name Result Date Reference Range Unit Abnormality Flag In House Urinalysis, automated ----PRO neg [id number] ----pH 7.0 20150920 ----BLO neg [id number] ----SG 1.020 20150920 ----KET 40 [id number] ----MAG neg [id number] ----Color yellow 20150920 ----URO 0.2 [id number] ----Clarity clear [id number] ----GLU neg [id number] ----NIT neg [id number] ----LIVAN neg [id number] X ray : Abdomen, Kidneys, Ureters, and Bladder (KUB) with upright films Summary Purpose eClinicalWorks Submission
--- OUTSIDE RECORDS SUMMARY | 2016-12-23 14:00 | External Medical Summary ---
:1950 Author Organization eClinicalWorks Care Team Providers Name Role Phone Winston Anders Provider Role Unavailable Allergies, Adverse Reactions, Alerts [...] Other myositis, unspecified site M60.80 Active Assessment Hypokalemia E87.6 Active Assessment Pain in left knee M25.562 Active Problem Fibromyalgia 729.1 Active Assessment Osteoarthritis of knee, unspecified M17.9 Active Problem Depressive disorder, not elsewhere 311 Active classified Assessment Syncope and collapse R55 Active Problem Other and unspecified 272.4 Active hyperlipidemia Medications Medication Code Code Instructions Start End Status Dosage [place] [address]-1 60 MG Orally May 24 capsule 237-01 Once a day 2012 Triamcinolone NDC 31828-6 0.5 % Dec 10 application Acetonide 002-15 Externally 2013 to affected Twice a day area Potassium NDC 65906-3 20 MEQ Orally 2 tablets Chloride Lexii ER 718-01 Every day Cipro NDC 17915-1 500 MG Orally 1 tablet 754-01 every 12 hrs Ondansetron NDC 56178-3 4 MG Orally September 19 tab 301-19 every 4-6 hrs 2015 dissolved prn nausea Metformin HCl NDC 42000-4 1000 MG Orally Feb 18, tablet with 214-01 Twice a day 2013 meals [place] NDC 47967-9 5-325 MG Orally October 07 tablet as 913-01 every 6 hrs 2015 needed for pain Voltaren NDC 09419-2 1 % Transdermal Apr 29September 2-4 grams 215-05 QID prn 2015 [place] [address]-2 4MG Orally Once May 24 tablet Mesylate 123-01 a day 2014 ProAir HFA NDC 18410-0 108 (90 Base) June 25 puffs as 851-85 MCG/ACT 2015 needed Inhalation every 4-6 hrs Lovastatin NDC 93180-4 20MG Orally 1 tablet with 928-06 Once a day a meal Furosemide NDC 65678-3 20 MG Orally August 19, 1 in the 297-25 Twice a day as 2014 morning and needed [place] [address]-0 7.5 MG Orally Jan 19, tablet 234-01 Twice a day 2015 Procedures Procedure Coding System Code Date OFFICE VISIT, EST-LOW COMPLEXITY (15 MIN.) CPT-4 61228 October 08, 2015 [facility] visit Established Patient CPT-4 G0467 October 08, 2015 Vital Signs Date/Time: October 08, 2015 Temperature 97.4 F Height 67.5 in Weight 246.8 lbs Blood Pressure Diastolic 84 mm Hg Blood Pressure Systolic 138 mm Hg Cardiac Monitoring Heart Rate 98 /min BMI 38.08 Index Oximetry 96 % Respiratory Rate 20 /min Results No Known Results Summary Purpose eClinicalWorks Submission
--- OUTSIDE RECORDS SUMMARY | 2016-12-23 14:00 | External Medical Summary ---
[...] Other myositis, unspecified site M60.80 Active Assessment Elevated prostate specific antigen R97.2 Active [PSA] Problem Fibromyalgia 729.1 Active Assessment Syncope and collapse R55 Active Problem Depressive disorder, not elsewhere 311 Active classified Assessment Osteoarthritis of knee, unspecified M17.9 Active Problem Other and unspecified hyperlipidemia 272.4 Active Medications Medication Code Code Instructions Start End Status Dosage System Date Date Cipro NDC 22639-8 500 MG Orally 1 tablet 754-01 every 12 hrs Meloxicam NDC 27100-8 7.5 MG Orally Jan 19 tablet 234-01 Twice a day 2015 Cymbalta NDC 80926-2 60 MG Orally May 24 capsule 237-01 Once a day 2012 [place] NDC 84782-8 5-325 MG Orally October 07 tablet as 913-01 every 6 hrs 2015 needed for pain Triamcinolone NDC 19302-6 0.5 % Dec 10, application Acetonide 002-15 Externally 2013 to affected Twice a day area Furosemide NDC 64863-9 20 MG Orally August 19, in the 297-25 Twice a day as 2014 morning and needed mid-afternoon prn Metformin HCl NDC 65238-6 1000 MG Orally Feb 18, 1 tablet with 214-01 Twice a day 2013 meals Lovastatin NDC 44756-1 20MG Orally 1 tablet with 928-06 Once [place] [address]-2 4 MG Orally September 19 tab 301-19 every 4-6 hrs 2015 dissolved prn nausea Potassium NDC 85449-3 20 MEQ Orally 2 tablets Chloride Lexii ER 718-01 [place] [address]-7 108 (90 Base) June 25 puffs as 851-85 MCG/ACT 2015 needed Inhalation every 4-6 [place] [address]-4 4MG Orally Once May 24 tablet Mesylate 123-01 a day 2014 [place] [address]-9 100 MG Orally not defined 364-00 BID Procedures Procedure Coding System Code Date OFFICE VISIT, EST-LOW COMPLEXITY (15 MIN.) CPT-4 22004 October 15, 2015 [facility] visit Established Patient CPT-4 G0467 October 15, 2015 Vital Signs Date/Time: October 15, 2015 Temperature 98.0 F Height 67.5 in Weight 248.8 lbs Blood Pressure Diastolic 84 mm Hg Blood Pressure Systolic 144 mm Hg Cardiac Monitoring Heart Rate 94 /min BMI 38.39 Index Oximetry 96 % Respiratory Rate 20 /min Results No Known Results Summary Purpose eClinicalWorks Submission
--- OUTSIDE RECORDS SUMMARY | 2016-12-23 14:00 | External Medical Summary ---
:1950 Author Organization eClinicalWorks Care Team Providers Name Role Phone Winston Anders Provider Role Unavailable Allergies No Known Allergies [...] M25.562 Active Problem Fibromyalgia 729.1 Active Assessment Syncope and collapse R55 Active Problem Depressive disorder, not elsewhere 311 Active classified Assessment Elevated prostate specific antigen R97.2 Active [PSA] Problem Other and unspecified 272.4 Active hyperlipidemia Medications Medication Code Code Instructions Start End Status Dosage System Date Date Triamcinolone NDC 19658-0 0.5 % Dec 10 application Acetonide 002-15 Externally 2013 to affected Twice a day area Furosemide NDC 50368-8 20 MG Orally August 19 in the 297-25 Twice a day as 2014 morning and needed mid-afternoon prn Labetalol HCl NDC 20474-1 100 MG Orally not defined 364-00 BID Potassium NDC 78892-5 20 MEQ Orally 2 tablets Chloride Lexii ER 718-01 Every day Cymbalta NDC 39490-1 60 MG Orally May 24 capsule 237-01 Once a day 2012 Ondansetron NDC 52679-3 4 MG Orally September 19 tab 301-19 every 4-6 hrs 2015 dissolved prn nausea [place] NDC 94126-4 5-325 MG Orally October 07 tablet as 913-01 every 6 hrs 2015 needed for pain Meloxicam NDC 60757-7 7.5 MG Orally Jan 19 tablet 234-01 Twice a day 2015 Doxazosin NDC 10419-3 4MG Orally Once May 1 tablet Mesylate 123-01 a day 2014 [place] [address]-3 108 (90 Base) June 25 puffs as 851-85 MCG/ACT 2015 needed Inhalation every 4-6 hrs Lovastatin NDC 99013-4 20MG Orally 1 tablet with 928-06 Once [place] [address]-9 1000 MG Orally Feb 18, 1 tablet with 214-01 Twice a day 2013 [place] [address]-9 500 MG Orally 1 tablet 754-01 every 12 hrs Procedures Procedure Coding System Code Date PSA NO REFLEX CPT-4 92337 Nov 01, 2015 Results Name Result Date Reference Range Unit Abnormality Flag Sedimentation Rate C-Reactive Protein CBC With Platelet and Differential Comprehensive Metabolic Panel (CMP) Summary Purpose eClinicalWorks Submission
--- OUTSIDE RECORDS SUMMARY | 2016-12-23 14:00 | External Medical Summary ---
:1950 Author Organization [employer] Care Team Providers Name Role Phone Demond, [...] Medications Results No Known Results Summary Purpose [employer] Submission
--- OUTSIDE RECORDS SUMMARY | 2016-12-23 14:00 | External Medical Summary ---
:1950 Author Organization eClinicalWorks Care Team Providers Name Role Phone Demond, Mikayla Provider Role Unavailable Allergies, Adverse Reactions, Alerts Substance Reaction Event Type Lortab Info Not Available Drug Allergy Problems Problem Type Condition Code Onset Dates Condition Status Assessment Other chronic pain 338.29 Active Problem Fibromyalgia 729.1 Active Assessment Hypertension, benign 401.1 Active Problem Other and unspecified hyperlipidemia 272.4 Active Problem Diabetes Mellitus Type 2, not stated 250.00 Active as uncontrolled Problem Unspecified otitis media 382.9 Active Problem Other and unspecified hyperlipidemia 272.4 Active Problem Depressive disorder, not elsewhere 311 Active classified Problem Hypertension, benign 401.1 Active Problem Other chronic pain 338.29 Active Assessment Diabetes Mellitus Type 2, not stated 250.00 Active as uncontrolled Assessment Fibromyalgia 729.1 Active Assessment Depressive disorder, not elsewhere 311 Active classified Assessment Hypertrophy (benign) of prostate 600.00 Active without urinary obstruction and other lower urinary tract symptoms [LUTS] Assessment Other and unspecified hyperlipidemia 272.4 Active Medications Medication Code Code Instructions Start End Date Status Dosage System [place] Lovast[place]DC 38107-5 20MG Orally 1 tablet with 928-06 Once [place] [address]-5 50 MG Orally at May 1-2 tablets 825-03 2014 Meloxicam NDC 56916-4 7.5 TAKE ONE 228-49 TABLET BY MOUTH TWICE DAILY Losartan NDC 82317-8 25 MG Orally May 20, 1 tablet Potassium 123-22 Once a day 2014 Aspirin NDC 78180-2 325 MG Orally 1 tablet 416-78 Once a day Doxazosin NDC 65874-7 4MG TAKE ONE Mesylate 123-01 TABLET BY MOUTH ONCE DAILY Metformin HCl NDC 59095-9 1000 MG Orally Feb 18, 1 tablet with 214-01 Twice a day 2013 meals Triamcinolone NDC 53209-3 0.1 % Dec 10, 1 application Acetonide 641-05 Externally 2013 to affected Twice a day area Cymbalta NDC 96675-3 60 MG Orally May 24 capsule 237-01 Once a day 2012 Amlodipine [facility] 31308-7 5 MG Orally 1 tablet Besylate 101-20 Once a day Procedures Procedure Coding System Code Date OFFICE VISIT, EST-MOD. COMPLEXITY (25 MIN) CPT-4 69667 May 20, 2014 [facility] visit Established Patient CPT-4 G0467 May 20, 2014 Vital Signs Date/Time: May 20, 2014 Height 67.5 in Weight 315.4 lbs Temperature 98.4 F Blood Pressure Diastolic 78 mm Hg Blood Pressure Systolic 132 mm Hg Cardiac Monitoring Heart Rate 94 /min BMI 48.66 Index Respiratory Rate 16 /min Results No Known Results Summary Purpose eClinicalWorks Submission
--- OUTSIDE RECORDS SUMMARY | 2016-12-23 14:00 | External Medical Summary ---
:1950 Author Organization eClinicalWorks Care Team Providers Name Role Phone Mikayla Lagos Provider Role Unavailable Allergies No Known Allergies Problems Problem Type Condition Code Onset Dates Condition Status Problem Fibromyalgia 729.1 Active Assessment Hypertrophy (benign) of prostate 600.00 Active without urinary obstruction and other lower urinary tract symptoms [LUTS] Problem Other and unspecified hyperlipidemia 272.4 Active [...] Dosage System Date Date Metformin HCl NDC 11882-2 1000 MG Orally Feb 18, 1 tablet with 214-01 Twice a day 2013 meals Meloxicam NDC 61397-9 7.5 TAKE ONE 228-49 TABLET BY MOUTH TWICE DAILY Cymbalta NDC 88256-0 60 MG Orally May 1 capsule 237-01 Once a day 2012 Lovastatin NDC 84209-0 20MG Orally 1 tablet with 928-06 Once a day a meal Aspirin NDC 04394-6 325 MG Orally 1 tablet 416-78 Once a day Triamcinolone NDC 48815-6 0.5 % Dec 10, application Acetonide 002-15 Externally 2013 to affected Twice a day area Amlodipine NDC 12885-6 5 MG Orally 1 tablet Besylate 101-20 Once a day Losartan NDC 02456-4 25 MG Orally May 20, tablet Potassium 123-22 Once a day 2014 Doxazosin NDC 89228-7 4MG May TAKE ONE Mesylate 123-01 2014 TABLET BY MOUTH ONCE DAILY Furosemide NDC 90856-6 40 MG Orally August 19, 1 tablet in am 299-25 Twice a day 2014 and 1/2 in early afternoon Procedures Procedure Coding System Code Date PSA NO REFLEX CPT-4 34288 August 26, 2014 Results No Known Results Summary Purpose eClinicalWorks Submission
--- OUTSIDE RECORDS SUMMARY | 2016-12-23 14:00 | External Medical Summary ---
:1950 Author Organization [employer] Care Team Providers Name Role Phone Mikayla [...] Medications Results No Known Results Summary Purpose [employer] Submission
--- OUTSIDE RECORDS SUMMARY | 2016-12-23 14:01 | External Medical Summary ---
:1950 Author Organization eClinicalWorks Care Team Providers Name Role Phone Demond Mikayla Provider Role Unavailable Allergies, Adverse Reactions, Alerts Substance Reaction Event Type Lortab Info Not Available Drug Allergy Problems Problem Type Condition ICD-9 [...] Start End Status Dosage System Date Date Lovastatin NDC 08683-8 20MG Orally 1 tablet with 928-06 Once a day a meal Doxazosin NDC 36678-0 4MG May TAKE ONE Mesylate 123-01 2014 TABLET BY MOUTH ONCE DAILY Triamcinolone NDC 40819-0 0.5 % Dec 10, 1 application Acetonide 002-15 Externally 2014 to affected Twice a day area Furosemide NDC 83674-2 40 MG Orally August 19, 1 tablet in am 299-25 Twice a day 2014 and 1/2 in early afternoon Metformin HCl NDC 07314-6 1000 MG Orally Feb 18, 1 tablet with 214-01 Twice a day 2013 meals Losartan NDC 69753-3 25 MG Orally May 20, tablet Potassium 123-22 Once a day 2014 Cymbalta NDC 92879-8 60 MG Orally May 24 capsule 237-01 Once a day 2012 Zofran NDC 69095-9 4 MG Orally October 05, tab 446-00 every 4-6 hrs 2014 as needed Aspirin NDC 68359-0 325 MG Orally 1 tablet 416-78 Once a day Meloxicam NDC 61620-1 7.5 TAKE ONE 228-49 TABLET BY MOUTH TWICE DAILY Procedures Procedure Coding System Code Date CMP CPT-4 89633 October 05, 2014 URINALYSIS, IN HOUSE CPT-4 08687 October 05, 2014 OFFICE VISIT, EST-LOW COMPLEXITY (15 MIN.) CPT-4 41804 October 05, 2014 [facility] visit Established Patient CPT-4 G0467 October 05, 2014 Vital Signs Date/Time: October 05, 2014 Height 67.5 in Weight 307 lbs Temperature 98.4 F Blood Pressure Diastolic 70 mm Hg Blood Pressure Systolic 110 mm Hg Cardiac Monitoring Heart Rate 84 /min BMI 47.37 Index Respiratory Rate 18 /min Results Name Result Date Reference Range Unit Abnormality Flag In House Urinalysis, automated In House CMP Summary Purpose eClinicalWorks Submission
--- OUTSIDE RECORDS SUMMARY | 2016-12-23 14:01 | External Medical Summary ---
[...] not 250.00 Active stated as uncontrolled Problem Type 2 diabetes mellitus without E11.9 Active complications Assessment Pain in left knee M25.562 Active Problem Essential (primary) hypertension I10 Active Assessment Trigger index finger of left hand M65.322 Active Assessment Urinary retention R33.9 Active Problem Myalgia M79.1 Active Problem Other myositis, unspecified site M60.80 Active Problem Unspecified otitis media 382.9 Active Problem Other chronic pain G89.29 Active Problem Other hyperlipidemia E78.4 Active Assessment Other hyperlipidemia E78.4 Active Assessment Other chronic pain G89.29 Active Assessment Pain in right knee M25.561 Active Assessment Myalgia M79.1 Active Problem Fibromyalgia 729.1 Active Problem Depressive disorder, not elsewhere 311 Active classified Assessment Essential (primary) hypertension I10 Active Problem Other and unspecified 272.4 Active hyperlipidemia Assessment Chronic obstructive pulmonary J44.9 Active disease, unspecified COPD type Assessment Type 2 diabetes mellitus without E11.9 Active complications Problem Other chronic pain 338.29 Active Medications Medication Code Code Instructions Start End Status Dosage System Date Date Doxazosin NDC 43527-1 4MG Orally Once May 24 tablet Mesylate 123-01 a day 2014 [place] [address]-6 108 (90 Base) June 25 puffs as 851-85 MCG/ACT 2015 needed Inhalation every 4-6 hrs Meloxicam NDC 30082-1 7.5 MG Orally Jan 19 tablet 234-01 Twice a day 2015 [place] [address]-4 0.5 % Dec 10, application Acetonide 002-15 Externally 2014 to affected Twice a day area Metformin HCl NDC 17654-7 1000 MG Orally Feb 18, 1 tablet with 214-01 Twice a day 2013 meals Cymbalta NDC 34146-8 60 MG Orally May 24 capsule 237-01 Once a day 2012 [place] [address]-0 1 % Transdermal Nov 14Mar 14, 2-4 grams 215-05 up to QID prn 2015 2015 [place] NDC 01469-9 5-325 MG Orally October 07Nov 1 tablet as 913-01 up to BID prn 2015, needed for 2015 pain Furosemide NDC 63595-7 20 MG Orally August 19, tab 297-25 Once a day 2014 [place] [address]-1 100 MG Orally 1 tab 364-[address] [place] [address]-9 20MG Orally 1 tablet with 928-06 Once a day a meal Procedures Procedure Coding System Code Date OFFICE VISIT, EST-MOD. COMPLEXITY (25 MIN) CPT-4 28230 Nov 15, 2015 [facility] visit Established Patient CPT-4 G0467 Nov 15, 2015 Vital Signs Date/Time: Nov 15, 2015 Temperature 98.2 F Height 67.5 in Weight 286 lbs Blood Pressure Diastolic 84 mm Hg Blood Pressure Systolic 146 mm Hg Cardiac Monitoring Heart Rate 96 /min BMI 44.13 Index Oximetry 96 % Respiratory Rate 20 /min Results No Known Results Summary Purpose eClinicalWorks Submission
[2016-12-23] MEDS ORDERED: SALINE FLUSH 10ml SYRINGE IVF PRN (14:02)
[2016-12-23] MEDS ORDERED: NS 1,000 ML IV ONE (14:02)
--- NOTE | 2016-12-23 14:49 | Emergency Department Report ---
General Adult HPI - General Chief complaint: Fever Stated complaint: Fever and fast HR Time Seen by Provider: 12/23/16 13:52 - History of Present Illness HPI narrative: 66-year-old male presents with "feeling worse". He has had 3 weeks of worsening weakness and body aches. He had a fever this morning of 101.5 at home, on arrival in ED he had normal tone. He did return from [place], where he had been very active and had eaten much better than normal. His A1c actually came down when he returned. About 3 weeks ago he helped to clean and cape a Moose. Since that time he feels like he has been exhausted and getting more steadily. Previously had urosepsis which kept him from going on a trip, about a year ago. Currently no dysuria hesitancy or urgency. Dyspnea. No nausea vomiting or diarrhea. Denies chest pain or pressure. - Related Data Home Medications Medication Instructions Recorded Confirmed Doxazosin Mesylate 4 mg PO QAM #0 08/04/13 12/23/16 Lovastatin 20 mg PO QAM #0 08/04/13 12/23/16 Meloxicam 15 mg PO QAM #0 08/04/13 12/23/16 Albuterol Sulfate [Proventil Hfa 1 puff INH Q4H PRN #0 09/16/15 12/23/16 90mcg] Diclofenac Sodium [Voltaren] 1 applic TOP PRN PRN #0 09/16/15 12/23/16 Metformin HCl 1,000 mg PO BID #0 10/06/15 12/23/16 Potassium Chloride 10 meq PO DAILY #0 10/06/15 12/23/16 Dabigatran Etexilate Mesylate 150 mg PO BID #0 01/22/16 12/23/16 [Pradaxa] Duloxetine HCl 60 mg PO QAM #0 01/22/16 12/23/16 Furosemide [Lasix] 60 mg PO QAM 12/23/16 12/23/16 Hydrocodone/APAP 5/325 [[place] 1 tab PO Q4H PRN 12/23/16 12/23/16 5/325] Labetalol [Normodyne] 100 mg PO BID 12/23/16 12/23/16 Triamcinolone 0.5% Cream 15 G 1 applic TOP BID PRN 12/23/16 12/23/16 [Kenalog 0.5%] Allergies Allergy/AdvReac Type Severity Reaction Status Date / Time Penicillins Allergy Unknown "RED SKIN" Verified 12/23/16 14:06 Course Vital Signs Temperature 98.4 F 12/23/16 13:37 Pulse Rate 92 12/23/16 13:37 Respiratory Rate 22 12/23/16 13:37 Blood Pressure 150/75 H 12/23/16 13:37 Pulse Oximetry 95 12/23/16 13:37 Temperature 98.4 F 12/23/16 13:37 Pulse Rate 82 12/23/16 14:44 Respiratory Rate 22 12/23/16 14:44 Blood Pressure 145/78 H 12/23/16 14:44 Pulse Oximetry 98 12/23/16 14:44 Medical Decision Making - MDM Narrative Medical decision making narrative: Lactate elevated at 3.5, CRP is elevated at 22.9. White count is normal. Patient is on Glucophage, no other source of elevated lactate is obvious, however due to fever and personal evaluation of patient, I am concerned that he is septic. Spoke with hospitalist who agreed to admit the patient. We will get blood cultures, then start the patient on vancomycin 2 g IV. Patient is allergic to penicillin, will need a in alternative to Zosyn. - Lab Data Result diagrams: 12/23/16 14:09 12/23/16 14:09 Lab Results 12/23/16 12/23/16 12/23/16 Range/Units 13:54 14:09 14:09 WBC 9.9 (4.5-11.0) T/MM3 RBC 5.06 (4.50-5.90) M/MM3 Hgb 15.5 (13.5-17.5) GM/DL Hct 47.9 (41-53) % MCV 94.7 (80-100) UM3 MCH 30.6 (26-34) UUG MCHC 32.4 (31-37) GM/DL RDW Std Deviation 43.5 (36.9-50.2) FL Plt Count 382 (130-400) T/MM3 MPV 9.3 L (9.4-12.4) UM3 Immature Gran % (Auto) 0.4 (0.0-0.5) % Neut % (Auto) 72.5 H (33-66) % Lymph % (Auto) 17.0 L (23-45) % [place]aines % (Auto) 7.3 (0-9.0) % Eos % (Auto) 2.5 (0-4) % Baso % (Auto) 0.3 (0-2) % Neut # (Auto) 7.2 (1.8-7.7) T/MM3 Lymph # (Auto) 1.7 (1-4.8) T/MM3 [place]aines # (Auto) 0.7 (0-0.8) T/MM3 Eos # (Auto) 0.3 (0-0.5) T/MM3 Baso # (Auto) 0.0 (0-0.2) T/MM3 Abs Immat Gran (auto) 0.04 H (0.00-0.03) T/MM3 Turbidity < 20 (0-20) Sodium 142 (134-144) MEQ/L Potassium 4.0 (3.6-5) MEQ/L Chloride 100 (98-107) MEQ/L Carbon Dioxide 29 (22-30) MEQ/L Anion Gap 13 (5-15) MEQ/L BUN 14.0 (9-20) MG/DL Creatinine 1.0 (0.8-1.5) MG/DL GFR Calculation 75 BUN/Creatinine Ratio 14 (6-26) RATIO Glucose 158 H (75-110) MG/DL Calculated Osmolality 277 (261-280) MOSM/KG Calcium 9.8 (8.4-10.2) MG/DL Total Bilirubin 0.60 (0.20-1.30) MG/DL Icterus Index < 2 (0-7) AST 28 (17-59) U/L ALT 43 (21-72) U/L Alkaline Phosphatase 129 H (38-126) U/L Troponin I < 0.012 (0-0.12) ng/ml C-Reactive Protein 22.2 H (0-9) MG/L Total Protein 7.5 (6.3-8.2) G/DL Albumin 4.4 (3.5-5.0) G/DL Globulin 3.1 (2.4-3.6) G/DL Albumin/Globulin Ratio 1.4 (1.1-2.2) RATIO Lipase 109 (23-300) U/L Plasma Lactate 3.5 H (0.6-2.2) MMOL/L Specimen Hemolysis < 15 (0-25) Ur Collection Type Urine, clean catch Urine Color Yellow (YELLOW) Urine Clarity Clear Urine pH 6.5 (5.0-8.0) Ur Specific [place] 1.010 L (1.015-1.025) Urine Protein Negative (NEGATIVE) Urine Glucose (UA) Negative (NEGATIVE) Urine Ketones Negative (NEGATIVE) Urine Occult Blood Negative (NEGATIVE) Urine Nitrate Negative (NEGATIVE) Urine Bilirubin Negative (NEGATIVE) Urine Urobilinogen 0.2 (NORMAL) EU/DL Ur Leukocyte Esterase Negative (NEGATIVE) Urinalysis Comment Microscopic not ind. Disposition Clinical Impression: Sepsis Disposition: 02 To [facility] Acute Care Condition: Stable Prescriptions: No Action Lovastatin 20 mg PO QAM #0 Doxazosin Mesylate 4 mg PO QAM #0 Meloxicam 15 mg PO QAM #0 Diclofenac Sodium [Voltaren] 1 applic TOP PRN PRN #0 PRN Reason: Prn Orders Metformin HCl 1,000 mg PO BID #0 Potassium Chloride 10 meq PO DAILY #0 Dabigatran Etexilate Mesylate [Pradaxa] 150 mg PO BID #0 Hydrocodone/APAP 5/325 [[place] 5/325] 1 tab PO Q4H PRN PRN Reason: Pain Furosemide [Lasix] 60 mg PO QAM Albuterol Sulfate [Proventil Hfa 90mcg] 1 puff INH Q4H PRN #0 PRN Reason: SHORTNESS OF AIR/WHEEZING Duloxetine HCl 60 mg PO QAM #0 Labetalol [Normodyne] 100 mg PO BID Triamcinolone 0.5% Cream 15 G [Kenalog 0.5%] 1 applic TOP BID PRN PRN Reason: Prn Orders Referrals: Mikayla Lagos, GAGE MAKER [Family Provider] - Time of Disposition: 14:55 - Seen By: physician
[2016-12-23] MEDS ORDERED: VANCOMYCIN - PHARMACY CONSULT MC ONE (14:50)
--- NOTE | 2016-12-23 16:13 | History & Physical Report ---
History of Present Illness Date: 12/23/16 Chief complaint: Fever, Rapid HR. HPI: Mr. Powell is a very pleasant 66 yo WM who presented to the ED today for c/o general malaise and NFW x the last 3 weeks. He returned 3 weeks ago from a trip to [place]. He spent a great deal of time there- spent a lot of time fishing, time in a privately owned, wood-heated hot tub, and helped skin and field dress a moose. He reports that there was a great deal of Mosquitos. Did not pay attention to if he received bites. Did not observe any known tick or flea bites. Patient has been fairly healthy over the last year. He did experience a hospitalization last year due to sepsis from pansensitive E. Coli UTI. No other known history of infectious disease. Did report a localized reaction at IV site for either Zosyn or Cefepime during last stay. No systemic reaction to either medication. Again, he reports generalized malaise. He does have chronic pain, but increase in generalized aches and pains. Some mild increase in left knee pain, but no joint swelling,effusion, redness, or warmth. Mild cough, nonproductive. No chest pain. Uses Albuterol PRN, but has not required for a long time. Not currently using. He does endorse a mild CASTILLO. No neck stiffness or pain. No abdominal pain, no N/V , no constipation, diarrhea, etc. No urinary c/o reported. Chart is reviewed at length during today's visit. Review of Systems All systems PM: 10-point ROS was reviewed, no additional remarkable complaints except - Constitutional Constitutional: Present: fatigue, fever(s), headache(s), malaise. Absent: anorexia, chills, night sweats, weakness - EENMT Eyes: Absent: change in vision Balance: Present: other (Hx of vertigo) Mouth/Throat: Absent: sore throat, scratchy throat - Cardiovascular Cardiovascular: Absent: chest pain, palpitations, syncope, dyspnea on exertion, edema Rhythm: Present: abnormal rhythm - Respiratory Respiratory: Present: cough. Absent: dyspnea, hemoptysis, dyspnea on exertion, wheezing - Gastrointestinal Gastrointestinal: Absent: abdominal pain, change in bowel habits, constipation, diarrhea, nausea, vomiting - Genitourinary Genitourinary: Absent: dysuria, urinary frequency, urinary hesitancy - Musculoskeletal Musculoskeletal: Present: arthralgias, myalgias. Absent: joint swelling, neck pain, stiffness - Neurological Neurological: Present: headache(s). Absent: abnormal gait, abnormal movements, confusion, focal weakness, loss of vision, numbness - Psychiatric Psychiatric: Present: depression (Controlled on Cymbalta) - Endocrine Endocrine: Absent: palpitations PFSH Patient Stated Medical History Cataracts Yes Hearing Loss Yes Hypertension Yes Asthma Yes Diabetes Mellitus Type 2 Yes Gastroesophageal Reflux Yes: Hx of Disease Hx Kidney Stones Yes Hx Urinary Tract Infection Yes Other Musculoskeletal Yes: Arthritis Sepsis Yes Depression Yes Arrhythmia (A.Fib?)- Amirani BPH HLD OA Pyelonephritis GENET Echo EF 72% Surgical History: Appendectomy. Tonsillectomy. Vasectomy. Pilonidal cyst Family History: Father: Pancreatitis, DM2, Cholelithiasis, Colon Ca Mother: healthy until , possible Colon Ca, but unconfirmed. Brother: Acute leukemia, Sepsis Multiple family members with stroke - Social History Smoking status: Former smoker Packs per day: 2 Packs-years: 40 (Quit at age 35) Substance use type: does not use Alcohol intake frequency: a few times a week (Drinks a couple of shots 2/week. No hx of ETOH WD.) Last drink: days (ago) Household members: spouse Current occupational status: retired Current residence: Apartment/Private Home Medications Home Medications Medication Instructions Recorded Confirmed Type Doxazosin Mesylate 4 mg PO QAM #0 08/04/13 12/23/16 History Lovastatin 20 mg PO QAM #0 08/04/13 12/23/16 History Meloxicam 15 mg PO QAM #0 08/04/13 12/23/16 History Albuterol Sulfate [Proventil Hfa 1 puff INH Q4H PRN #0 09/16/15 12/23/16 History 90mcg] Diclofenac Sodium [Voltaren] 1 applic TOP PRN PRN #0 09/16/15 12/23/16 History Metformin HCl 1,000 mg PO BID #0 10/06/15 12/23/16 History Potassium Chloride 10 meq PO DAILY #0 10/06/15 12/23/16 History Dabigatran Etexilate Mesylate 150 mg PO BID #0 01/22/16 12/23/16 History [Pradaxa] Duloxetine HCl 60 mg PO QAM #0 01/22/16 12/23/16 History Furosemide [Lasix] 60 mg PO QAM 12/23/16 12/23/16 History Hydrocodone/APAP 5/325 [[place] 1 tab PO Q4H PRN 12/23/16 12/23/16 History 5/325] Labetalol [Normodyne] 100 mg PO BID 12/23/16 12/23/16 History Triamcinolone 0.5% Cream 15 G 1 applic TOP BID PRN 12/23/16 12/23/16 History [Kenalog 0.5%] Allergies Allergy/AdvReac Type Severity Reaction Status Date / Time Penicillins Allergy Unknown "RED SKIN" Verified 12/23/16 14:06 Exam Vital Signs: Temperature 98.4 F 12/23/16 13:37 Pulse Rate 79 12/23/16 15:28 Respiratory Rate 22 12/23/16 14:44 Blood Pressure 170/86 H 12/23/16 15:28 Pulse Oximetry 94 12/23/16 15:28 Telemetry Rhythm: Sinus Rhythm Height/Weight/BMI: Height 1.73 m Weight 125.5 kg - Constitutional Present: no acute distress, well nourished, well developed, obese, disheveled, cooperative Comments: Very good historian. - Routine HEENT Exam Head: Present: normocephalic, atraumatic Eye: Present: EOMI, PERRL, normal accommodation, conjunctivae pink. Absent: conjunctival icterus, scleral injection ENT: Present: mucous membranes moist - Routine Neck Exam Present: supple, full ROM. Absent: JVD, carotid bruit, tenderness - Routine Chest/Breast/Axilla Exam Chest wall: Absent: tenderness - Routine Respiratory Exam Present: decreased breath sounds, CTA bilaterally. Absent: accessory muscle use , dyspnea, rales, rhonchi, stridor, wheezes, crackles - Routine Cardiovascular Exam Present: RRR, S1, S2, no murmur - Routine Abdominal Exam Present: soft, normoactive bowel sounds, non distended, non tender (NT to deep palpation. No RUQ pain to deep palpation. ) - Routine Extremities Exam Present: no edema, non tender. Absent: cyanosis, clubbing, edema Comments: Right knee examined- no redness, warmth, effusion, etc. - Routine Back/Spine/Pelvis Exam Back/Spine: Present: full ROM - Routine Skin Exam Present: intact, dry, warm - Routine Neurological Exam Present: alert, oriented X3, CN II-XII intact, sensory deficit, motor deficit, moving all extremities - Routine Psychiatric Exam Present: normal affect, normal thought process, cooperative, good insight, good judgment Results - Labs CBC & Chem 7: 12/23/16 14:09 12/23/16 14:09 Labs: Laboratory Results - last 24 hr 12/23/16 12/23/16 12/23/16 13:54 14:09 14:09 WBC 9.9 RBC 5.06 Hgb 15.5 Hct 47.9 MCV 94.7 MCH 30.6 MCHC 32.4 RDW Std Deviation 43.5 Plt Count 382 MPV 9.3 L Immature Gran % (Auto) 0.4 Neut % (Auto) 72.5 H Lymph % (Auto) 17.0 L [place] % (Auto) 7.3 Eos % (Auto) 2.5 Baso % (Auto) 0.3 Neut # (Auto) 7.2 Lymph # (Auto) 1.7 [place] # (Auto) 0.7 Eos # (Auto) 0.3 Baso # (Auto) 0.0 Abs Immat Gran (auto) 0.04 H Turbidity < 20 Sodium 142 Potassium 4.0 Chloride 100 Carbon Dioxide 29 Anion Gap 13 BUN 14.0 Creatinine 1.0 GFR Calculation 75 BUN/Creatinine Ratio 14 Glucose 158 H Calculated Osmolality 277 Calcium 9.8 Total Bilirubin 0.60 Icterus Index < 2 AST 28 ALT 43 Alkaline Phosphatase 129 H Troponin I < 0.012 C-Reactive Protein 22.2 H Total Protein 7.5 Albumin 4.4 Globulin 3.1 Albumin/Globulin Ratio 1.4 Lipase 109 Plasma Lactate 3.5 H Specimen Hemolysis < 15 Ur Collection Type Urine, clean catch Urine Color Yellow Urine Clarity Clear Urine pH 6.5 Ur Specific [place] 1.010 L Urine Protein Negative Urine Glucose (UA) Negative Urine Ketones Negative Urine Occult Blood Negative Urine Nitrate Negative Urine Bilirubin Negative Urine Urobilinogen 0.2 Ur Leukocyte Esterase Negative Urinalysis Comment Microscopic not ind. Microbiology Results: Microbiology 12/23/16 15:08 Peripheral/Iv Start Blood Culture - Preliminary Culture Initiated - Results Pending 12/23/16 15:01 Peripheral/Iv Start Blood Culture - Preliminary Culture Initiated - Results Pending 12/23/16 13:45 Urine, Voided (Cc/notcc) Urine Culture - Preliminary Culture Initiated - Results Pending - Imaging and Cardiology Chest x-ray Status: image reviewed by me, pending Additional comments: No acute infiltrate Assessment and Plan (1) Sepsis Current visit: Yes Status: Acute DVT Prophylaxis: Pradaxa Resuscitation Status: Full Code Assessment and Plan: Assessment: Acute Febrile illness Early sepsis with elevated Lactate Concern for Tick Borne illness. DM2 HTN GENET Arrhythmia, with chronic anticoagulation. pEF, suspected diastolic dysfunction BPH Hx of Asthma Chronic pain- FMS/OA Plan: H&P 12/23/16 *Concern for Tick-borne illness, vs. Mosquito borne illness. Check WNV, Tul[place]mia, RMSF, Lyme disease, Rickasettia. Will also check for Q Fever given [facility] site review of infectious disease concerns. Cover empirically with Ceftriaxone, Doxycyline. D/W pt- focal reaction to PCN. No hx of systemic reaction. *Hold Metformin given concern for sepsis. Use low dose Lantus. *GENET- last year he was dismissed on home O2. Monitor at night. PRN albuterol. *HTN/Arrhythmia/Diastolic HF- Continue home meds as appropriate. Continue Pradaxa. Monitor tele. *Chronic pain- continue home meds. *BPH- continue medications. UA looks ok. Continue to monitor progress. D/W patient at length. D/W Dr. Martínez in ER. - Time spent with patient Time with patient PN: 50 minutes Coordination of Care: >50% of visit spent providing counseling/coordination of care Sepsis Assessment - Evaluation Possible source: other SIRS Criteria: temperature > or equal to 100.4, pulse > or equal to 90 beats/ minute, plasma CRP >2 above normal Severe Sepsis: lactate > or equal to 2.0 mg/dl - Focused Exam Date exam was performed: 12/23/16 Hospital Course Summary Disclaimer: The visit summary below is not to be considered part of the above Progress Note. Hospital Course: 12/23/16 16:31 Assessment: Acute Febrile illness Early sepsis with elevated Lactate Concern for Tick Borne illness. DM2 HTN GENET Arrhythmia, with chronic anticoagulation. pEF, suspected diastolic dysfunction BPH Hx of Asthma Chronic pain- FMS/OA Plan: H&P 12/23/16 *Concern for Tick-borne illness, vs. Mosquito borne illness. Check WNV, Tul[place]mia, RMSF, Lyme disease, Rickasettia. Will also check for Q Fever given [facility] site review of infectious disease concerns. Cover empirically with Ceftriaxone, Doxycyline. D/W pt- focal reaction to PCN. No hx of systemic reaction. *Hold Metformin given concern for sepsis. Use low dose Lantus. *GENET- last year he was dismissed on home O2. Monitor at night. PRN albuterol. *HTN/Arrhythmia/Diastolic HF- Continue home meds as appropriate. Continue Pradaxa. Monitor tele. *Chronic pain- continue home meds. *BPH- continue medications. UA looks ok. Continue to monitor progress. D/W patient at length. D/W Dr. Martínez in ER.
[2016-12-23] MEDS ORDERED: HYDROCODONE/APAP 5mg/325mg TABLET PO PRN (17:47)
[2016-12-23] MEDS ORDERED: ALBUTEROL 2.5mg/3ml (0.083%) NEB AEROSOL PRN (17:47)
[2016-12-23] MEDS ORDERED: CEFTRIAXONE 1,000 MG in D5W 25 ML IV SCH (17:47)
[2016-12-23 17:53] VITALS: BMI 42.2
[2016-12-23] MEDS ORDERED: NS FLUSH BAG 500ml IV PRN (18:35)
[2016-12-23] MEDS: LABETALOL 100 MG TABLET PO SCH (21:21)
[2016-12-23] MEDS: DOXYCYCLINE 100 MG in NS 250ml 250 ML IV SCH (21:21)
[2016-12-23] MEDS: INSULIN GLARGINE 100unit/ml INJECTION SQ SCH (22:37)
[2016-12-24] MEDS ORDERED: CEFTRIAXONE 1 G in NS 100 ML IV SCH (06:45)
[2016-12-24] MEDS ORDERED: HYDRALAZINE 25 MG TABLET PO PRN (08:32)
--- NOTE | 2016-12-24 08:56 | XRay Report ---
INDICATION: Malaise, exhaustion PROCEDURE: CHEST 2-VIEWS UPRIGHT (PA & LAT) Encounter: Initial COMPARISON: None FINDINGS: The lungs are clear without evidence of focal abnormal airspace opacity. There is no pleural effusion or pneumothorax. The heart size, mediastinal contours and pulmonary vascularity are within normal limits. DISH of the thoracic spine. IMPRESSION: No acute cardiopulmonary disease. .
[2016-12-24] MEDS ORDERED: POTASSIUM CHLORIDE 10 MEQ PO SCH (09:00)
[2016-12-24] MEDS: DOXYCYCLINE 100 MG in NS 250ml 250 ML IV SCH (09:04)
[2016-12-24] MEDS: DULOXETINE 60 MG CAPSULE PO SCH (09:04)
[2016-12-24] MEDS: LABETALOL 100 MG TABLET PO SCH ×2 (09:04→20:19)
[2016-12-24] MEDS: FUROSEMIDE 40 MG TABLET PO SCH (09:04)
[2016-12-24] MEDS: DOXAZOSIN 4 MG TABLET PO SCH (09:17)
[2016-12-24] MEDS: AMLODIPINE 10 MG TABLET PO SCH (09:17)
--- NOTE | 2016-12-24 10:46 | Progress Note ---
Subjective: Luc is seen today in follow up. He is feeling a little better. Tired. A little less achy. Low grade fever overnoc. No N/V. No cough. No SOA. Chart is reviewed, D/W Dr. Kirby. [facility] required this am due to uncontrolled HTN. Objective Vital signs: Temperature 99.6 F 12/24/16 08:13 Pulse Rate 67 12/24/16 08:13 Respiratory Rate 18 12/24/16 08:13 Blood Pressure 166/90 H 12/24/16 09:25 Pulse Oximetry 94 12/24/16 08:13 Rhythm: Normal Sinus Rhythm Height/Weight/BMI: Height 1.73 m Weight 126.5 kg Body Mass Index 42.2 - Constitutional Present: no acute distress, obese, cooperative - Routine HEENT Exam Head: Present: normocephalic, atraumatic Eye: Present: EOMI, PERRL. Absent: conjunctival icterus, scleral injection ENT: Present: mucous membranes moist - Routine Respiratory Exam Present: decreased breath sounds, CTA bilaterally. Absent: rhonchi, wheezes, crackles - Routine Cardiovascular Exam Present: RRR, S1, S2, no murmur Comments: EKG reviewed. NSR. Chronic changes. - Routine Abdominal Exam Present: soft, normoactive bowel sounds, non distended, non tender - Routine Extremities Exam Present: no edema, non tender, full ROM - Routine Back/Spine/Pelvis Exam Back/Spine: Present: full ROM - Routine Musculoskeletal Exam Musculoskeletal: Present: normal strength, no joint swelling, no erythema, moving extremities well - Routine Skin Exam Present: intact, dry, warm - Routine Neurological Exam Present: alert, oriented X3, CN II-XII intact, moving all extremities - Routine Psychiatric Exam Present: normal affect, normal thought process, good insight, good judgment Results - Labs CBC & Chem 7: 12/24/16 05:40 12/24/16 05:40 Microbiology Results: Microbiology 12/23/16 15:08 Peripheral/Iv Start Blood Culture - Preliminary Culture Initiated - Results Pending 12/23/16 15:01 Peripheral/Iv Start Blood Culture - Preliminary Culture Initiated - Results Pending 12/23/16 13:45 Urine, Voided (Cc/notcc) Urine Culture - Preliminary Culture Initiated - Results Pending Assessment and Plan (1) Sepsis Current visit: Yes Status: Acute (2) At high risk for tick borne illness Current visit: Yes Status: Acute (3) HTN (hypertension) Current visit: Yes Status: Acute (4) DM2 (diabetes mellitus, type 2) Current visit: Yes Status: Acute DVT Prophylaxis: Pradaxa Assessment and Plan: Assessment: Acute Febrile illness Early sepsis with elevated Lactate Concern for Tick Borne illness. DM2 HTN GENET Arrhythmia, with chronic anticoagulation. pEF, suspected diastolic dysfunction BPH Hx of Asthma Chronic pain- FMS/OA Plan: 12/24/16 *Concern for Tick-borne illness, vs. Mosquito borne illness. Tick panel, WNV, Q Fever screen pending. Cover empirically with Ceftriaxone, Doxycyline. Resp Viral PCR negative. BC pending. Monitor CRP for progress. CPK negative. *Hold Metformin given concern for sepsis. Use low dose Lantus. BG controlled on current. ADA diet. *GENET- last year he was dismissed on home O2. Monitor at night. PRN albuterol. *HTN/Arrhythmia/Diastolic HF- Continue home meds as appropriate. Continue Pradaxa. Monitor tele. *Chronic pain/FMS/OA continue home meds. *BPH- continue medications. *HTN- BP uncontrolled today. Added Norvasc this AM per Dr. Kirby. Improving. Continue beta-steven and Lasix as well. He is mildly dry on BMP- monitor. Taking PO well. D/W Dr Kirby. - Time spent with patient Time with patient PN: 30 minutes Hospital Course Summary Disclaimer: The visit summary below is not to be considered part of the above Progress Note. Hospital Course: 12/23/16 16:31 Assessment: Acute Febrile illness Early sepsis with elevated Lactate Concern for Tick Borne illness. DM2 HTN GENET Arrhythmia, with chronic anticoagulation. pEF, suspected diastolic dysfunction BPH Hx of Asthma Chronic pain- FMS/OA Plan: H&P 12/23/16 *Concern for Tick-borne illness, vs. Mosquito borne illness. Check WNV, Tularemia, RMSF, Lyme disease, Rickasettia. Will also check for Q Fever given [facility] public health site review of infectious disease concerns. Cover empirically with Ceftriaxone, Doxycyline. D/W pt- focal reaction to PCN. No hx of systemic reaction. *Hold Metformin given concern for sepsis. Use low dose Lantus. *GENET- last year he was dismissed on home O2. Monitor at night. PRN albuterol. *HTN/Arrhythmia/Diastolic HF- Continue home meds as appropriate. Continue Pradaxa. Monitor tele. *Chronic pain- continue home meds. *BPH- continue medications. UA looks ok. Continue to monitor progress. D/W patient at length. D/W Dr. Martínez in ER. 12/24/16 10:50 12/24/16 *Concern for Tick-borne illness, vs. Mosquito borne illness. Tick panel, WNV, Q Fever screen pending. Cover empirically with Ceftriaxone, Doxycyline. Resp Viral PCR negative. BC pending. Monitor CRP for progress. CPK negative. *Hold Metformin given concern for sepsis. Use low dose Lantus. BG controlled on current. ADA diet. *GENET- last year he was dismissed on home O2. Monitor at night. PRN albuterol. *HTN/Arrhythmia/Diastolic HF- Continue home meds as appropriate. Continue Pradaxa. Monitor tele. *Chronic pain/FMS/OA continue home meds. *BPH- continue medications. *HTN- BP uncontrolled today. Added Norvasc this AM per Dr. Kirby. Improving. Continue beta-steven and Lasix as well. He is mildly dry on BMP- monitor. Taking PO well. D/W Dr Kirby.
[2016-12-24] MEDS: INSULIN GLARGINE 100unit/ml INJECTION SQ SCH (20:11)
[2016-12-24] MEDS ORDERED: DOXYCYCLINE 100 MG in NS 250ml 250 ML IV SCH (21:00)
[2016-12-24] MEDS ORDERED: LOVASTATIN 20 MG TABLET PO SCH (21:00)
[2016-12-25 07:34] VITALS: BP 124/78; PULSE 73; RESP 18; TEMP 96.7; O2SAT 94
[2016-12-25] MEDS: DULOXETINE 60 MG CAPSULE PO SCH (08:06)
[2016-12-25] MEDS: DOXAZOSIN 4 MG TABLET PO SCH (08:06)
[2016-12-25] MEDS: LABETALOL 100 MG TABLET PO SCH (08:07)
[2016-12-25] MEDS: AMLODIPINE 10 MG TABLET PO SCH (08:07)
[2016-12-25] MEDS: FUROSEMIDE 40 MG TABLET PO SCH (08:07)
--- NOTE | 2016-12-25 10:40 | Progress Note ---
Subjective: F/U; Febrile illness, elevated Lactate. Doing okay today. Not having fevers or chills. No temp elevation. Breathing well -not having SOA, cough, congestion or sputum. No pain with breathing. No chest pressure or pain. Eating well-no nausea or ab pain. Urinating well. Still with some weakness and fatigue. Slept poorly last night-right leg sore from fall trauma while in [place]. Objective Vital signs: Temperature 96.7 F L 12/25/16 07:33 Pulse Rate 73 12/25/16 07:33 Respiratory Rate 18 12/25/16 07:33 Blood Pressure 124/78 12/25/16 07:33 Pulse Oximetry 94 12/25/16 07:33 Rhythm: Normal Sinus Rhythm Height/Weight/BMI: Height 1.73 m Weight 125.5 kg Body Mass Index 42.2 - Constitutional Present: no acute distress, well nourished, well developed, morbidly obese, cooperative. Absent: combative, obtunded - Routine HEENT Exam Head: Present: normocephalic, atraumatic Eye: Present: EOMI, PERRL ENT: Present: mucous membranes moist - Routine Respiratory Exam Present: CTA bilaterally. Absent: respiratory distress, rhonchi, stridor, wheezes, crackles - Routine Cardiovascular Exam Present: RRR, no murmur - Routine Abdominal Exam Present: soft, normoactive bowel sounds, non distended, non tender. Absent: guarding - Routine Musculoskeletal Exam Musculoskeletal: Present: no clubbing or cyanosis, normal strength - Routine Skin Exam Present: intact, dry, warm - Routine Neurological Exam Present: alert, oriented X3, CN II-XII intact, moving all extremities, vision grossly intact, hearing grossly intact. Absent: altered mental status - Routine Psychiatric Exam Present: normal affect, normal thought process, cooperative, good insight, good judgment. Absent: anxious, agitated Results - Labs CBC & Chem 7: 12/25/16 04:15 12/25/16 04:15 Assessment and Plan (1) Sepsis Current visit: Yes Status: Suspected (2) At high risk for tick borne illness Current visit: Yes Status: Acute (3) HTN (hypertension) Current visit: Yes Status: Acute (4) DM2 (diabetes mellitus, type 2) Current visit: Yes Status: Acute DVT Prophylaxis: Pradaxa Resuscitation Status: Full Code Assessment and Plan: Assessment: Acute Febrile illness Early sepsis with elevated Lactate Concern for Tick Borne illness. DM2 HTN GENET Arrhythmia, with chronic anticoagulation. pEF, suspected diastolic dysfunction BPH Hx of Asthma Chronic pain- FMS/OA Plan: Medically improved. No evidence for sepsis. Elevated lactate resolved. Uncertain if this was from sepsis or secondary to Metformin use. Serology pending - potentially could take another 5-7 days for results. Will discharge to home. Continue with doxycycline 100mg BIDWM for 18 more doses. May restart Metformin. [facility]. See orders for details. Case discussed with patient's . Time spent with care and discharge greater than 30 minutes. 12/24/16 *Concern for Tick-borne illness, vs. Mosquito borne illness. Tick panel, WNV, Q Fever screen pending. Cover empirically with Ceftriaxone, Doxycyline. Resp Viral PCR negative. BC pending. Monitor CRP for progress. CPK negative. *Hold Metformin given concern for sepsis. Use low dose Lantus. BG controlled on current. ADA diet. *GENET- last year he was dismissed on home O2. Monitor at night. PRN albuterol. *HTN/Arrhythmia/Diastolic HF- Continue home meds as appropriate. Continue Pradaxa. Monitor tele. *Chronic pain/FMS/OA continue home meds. *BPH- continue medications. *HTN- BP uncontrolled today. Added Norvasc this AM per Dr. Kirby. Improving. Continue beta-steven and Lasix as well. He is mildly dry on BMP- monitor. Taking PO well. D/W Dr Kirby. Hospital Course Summary Disclaimer: The visit summary below is not to be considered part of the above Progress Note. Hospital Course: 12/23/16 Assessment: Acute Febrile illness Concern for early sepsis with elevated Lactate Concern for Tick Borne illness. DM2 HTN GENET Arrhythmia, with chronic anticoagulation. pEF, suspected diastolic dysfunction BPH Hx of Asthma Chronic pain- FMS/OA Plan: H&P 12/23/16 *Concern for Tick-borne illness, vs. Mosquito borne illness. Check WNV, Tularemia, RMSF, Lyme disease, Rickasettia. Will also check for Q Fever given [facility] public health site review of infectious disease concerns. Cover empirically with Ceftriaxone, Doxycyline. D/W pt- focal reaction to PCN. No hx of systemic reaction. Hold Metformin given concern for sepsis. Use low dose Lantus. GENET- last year he was dismissed on home O2. Monitor at night. PRN albuterol. HTN/Arrhythmia/Diastolic HF- Continue home meds as appropriate. Continue Pradaxa. Monitor tele. Chronic pain- continue home meds. BPH- continue medications. UA looks ok. Continue to monitor progress. D/W patient at length. D/W Dr. Martínez in ER. 12/24/16 Concern for Tick-borne illness, vs. Mosquito borne illness. Tick panel, WNV, Q Fever screen pending. Cover empirically with Ceftriaxone, Doxycyline. Resp Viral PCR negative. BC pending. Monitor CRP for progress. CPK negative. Hold Metformin given concern for sepsis. Use low dose Lantus. BG controlled on current. ADA diet. GENET- last year he was dismissed on home O2. Monitor at night. PRN albuterol. HTN/Arrhythmia/Diastolic HF- Continue home meds as appropriate. Continue Pradaxa. Monitor tele. Chronic pain/FMS/OA continue home meds. BPH- continue medications. HTN- BP uncontrolled today. Added Norvasc this AM per Dr. Kirby. Improving. Continue beta-steven and Lasix as well. He is mildly dry on BMP- monitor. Taking PO well. 12/25/16 Medically improved. No evidence for sepsis. Elevated lactate resolved. Uncertain if this was from sepsis or secondary to Metformin use. Febrile process resolved. No leukocytosis. Serology pending - potentially could take another 5-7 days for results. Will discharge to home. Continue with doxycycline 100mg BIDWM for 18 more doses. May restart Metformin. [facility]. See orders for details.
--- NOTE | 2016-12-25 10:54 | Discharge Summary ---
Discharge Information Date of admission: 12/23/16 17:25 Anticipated date of discharge: 12/25/16 Attending Physician: Helga Kirby MD Primary care physician: Mikayla Lagos APRN - Discharge Diagnosis (1) At high risk for tick borne illness Status: Acute (2) Sepsis Status: Suspected (3) HTN (hypertension) Status: Acute (4) DM2 (diabetes mellitus, type 2) Status: Acute Discharge Diagnosis: Discharge diagnosis Acute Febrile illness Associated conditions and complications Concern for early sepsis with elevated Lactate Sepsis ruled out, no evidence for sepsis. Elevated lactate (POA) - Resolved Sepsis ruled out. Suspect secondary to metformin use Concern for Tick Borne illness. DM2 HTN GENET Arrhythmia, with chronic anticoagulation. pEF, suspected diastolic dysfunction BPH Hx of Asthma Chronic pain- FMS/OA Morbid Obesity with BMI 42.1 - Laboratory Labs: Admit Lab 12/23/16 14:09 WBC 9.9 RBC 5.06 Hgb 15.5 Hct 47.9 MCV 94.7 Plt Count 382 Neut % (Auto) 72.5 H Lymph % (Auto) 17.0 L Admit Lab 12/23/16 12/23/16 14:09 17:15 Sodium 142 Potassium 4.0 Chloride 100 Carbon Dioxide 29 Anion Gap 13 BUN 14.0 Creatinine 1.0 GFR Calculation 75 BUN/Creatinine Ratio 14 Glucose 158 H Calculated Osmolality 277 Calcium 9.8 Total Bilirubin 0.60 AST 28 ALT 43 Alkaline Phosphatase 129 H Creatine Kinase 23 L Lipase 109 Plasma Lactate 3.5 H Pending Laboratory Tests 12/23/16 21:35 A. phagocytophilum Cmmt Pending E.chaffeensis DNA (PCR) Pending E. ewingii/canis (PCR) Pending E. muris-like DNA (PCR) Pending West Nile Virus IgG Ab Pending West Nile Virus IgM Ab Pending West Nile Interp Pending Q Fever Phase I IgG Ab Pending Q Fever Phase I IgM Ab Pending Q Fever Phase II IgG Ab Pending Q Fever Phase II IgM Ab Pending Q Fever Ab Interpret Pending Rickettsia Ab (Spotted Pending Tularemia Antibody Pending 12/25/16 04:15 12/25/16 04:15 - Radiology Radiology: Date of Exam: 12/23/16 PROCEDURE: CHEST 2-VIEWS UPRIGHT (PA & LAT) FINDINGS: The lungs are clear without evidence of focal abnormal airspace opacity. There is no pleural effusion or pneumothorax. The heart size, mediastinal contours and pulmonary vascularity are within normal limits. DISH of the thoracic spine. IMPRESSION: No acute cardiopulmonary disease. History of Present Illness HPI: Mr. Powell is a very pleasant 66 yo WM who presented to the ED today for c/o general malaise and NFW x the last 3 weeks. He returned 3 weeks ago from a trip to [place]. He spent a great deal of time there- spent a lot of time fishing, time in a privately owned, wood-heated hot tub, and helped skin and field dress a moose. He reports that there was a great deal of Mosquitos. Did not pay attention to if he received bites. Did not observe any known tick or flea bites. Patient has been fairly healthy over the last year. He did experience a hospitalization last year due to sepsis from pansensitive E. Coli UTI. No other known history of infectious disease. Did report a localized reaction at IV site for either Zosyn or Cefepime during last stay. No systemic reaction to either medication. Again, he reports generalized malaise. He does have chronic pain, but increase in generalized aches and pains. Some mild increase in left knee pain, but no joint swelling,effusion, redness, or warmth. Mild cough, nonproductive. No chest pain. Uses Albuterol PRN, but has not required for a long time. Not currently using. He does endorse a mild CASTILLO. No neck stiffness or pain. No abdominal pain, no N/V , no constipation, diarrhea, etc. No urinary c/o reported. Chart is reviewed at length during today's visit. For complete details of the H&P refer to that document. Objective Vital signs: Temperature 96.7 F L 12/25/16 07:33 Pulse Rate 73 12/25/16 07:33 Respiratory Rate 18 12/25/16 07:33 Blood Pressure 124/78 12/25/16 07:33 Pulse Oximetry 94 12/25/16 07:33 Rhythm: Normal Sinus Rhythm Height/Weight/BMI: Height 1.73 m Weight 125.5 kg Body Mass Index 42.2 Hospital Course This is a general summary of the patient's hospital course. For more details refer to the complete medical record. Hospital course: 12/23/16 Assessment: Acute Febrile illness Concern for early sepsis with elevated Lactate Concern for Tick Borne illness. DM2 HTN GENET Arrhythmia, with chronic anticoagulation. pEF, suspected diastolic dysfunction BPH Hx of Asthma Chronic pain- FMS/OA Plan: H&P 12/23/16 *Concern for Tick-borne illness, vs. Mosquito borne illness. Check WNV, Tularemia, RMSF, Lyme disease, Rickasettia. Will also check for Q Fever given [facility] site review of infectious disease concerns. Cover empirically with Ceftriaxone, Doxycyline. D/W pt- focal reaction to PCN. No hx of systemic reaction. Hold Metformin given concern for sepsis. Use low dose Lantus. GENET- last year he was dismissed on home O2. Monitor at night. PRN albuterol. HTN/Arrhythmia/Diastolic HF- Continue home meds as appropriate. Continue Pradaxa. Monitor tele. Chronic pain- continue home meds. BPH- continue medications. UA looks ok. Continue to monitor progress. D/W patient at length. D/W Dr. Martínez in ER. 12/24/16 Concern for Tick-borne illness, vs. Mosquito borne illness. Tick panel, WNV, Q Fever screen pending. Cover empirically with Ceftriaxone, Doxycyline. Resp Viral PCR negative. BC pending. Monitor CRP for progress. CPK negative. Hold Metformin given concern for sepsis. Use low dose Lantus. BG controlled on current. ADA diet. GENET- last year he was dismissed on home O2. Monitor at night. PRN albuterol. HTN/Arrhythmia/Diastolic HF- Continue home meds as appropriate. Continue Pradaxa. Monitor tele. Chronic pain/FMS/OA continue home meds. BPH- continue medications. HTN- BP uncontrolled today. Added Norvasc this AM per Dr. Kirby. Improving. Continue beta-steven and Lasix as well. He is mildly dry on BMP- monitor. Taking PO well. 12/25/16 Medically improved. No evidence for sepsis. Elevated lactate resolved. Uncertain if this was from sepsis or secondary to Metformin use. Febrile process resolved. No leukocytosis. Serology pending - potentially could take another 5-7 days for results. Will discharge to home. Continue with doxycycline 100mg BIDWM for 18 more doses. May restart Metformin. [facility]. Recheck BP - elevated during hospitalization. Consider KANDICE use due to DM. Check on pending serology. See orders for details. Time spent with patient: discharge greater than 30 minutes DVT Prophylaxis: Pradaxa Discharge Plan - Med Rec/Dispo Referrals/Follow Up: Mikayla Lagos APRN [Family Provider] - 1 Week (Hospital F/U in 1 week ) Rena Instructions: Sepsis (GEN) Prescriptions: New Doxycycline [Vibramycin] 100 mg PO BIDWM #18 tab Lovastatin [Mevacor] 20 mg PO HS tablet Continue Doxazosin Mesylate 4 mg PO QAM #0 Meloxicam 15 mg PO QAM #0 Diclofenac Sodium [Voltaren] 1 applic TOP PRN PRN #0 PRN Reason: Prn Orders Metformin HCl 1,000 mg PO BID #0 Potassium Chloride 10 meq PO DAILY #0 Dabigatran Etexilate Mesylate [Pradaxa] 150 mg PO BID #0 Hydrocodone/APAP 5/325 [[place] 5/325] 1 tab PO Q4H PRN PRN Reason: Pain Furosemide [Lasix] 60 mg PO QAM Albuterol Sulfate [Proventil Hfa 90mcg] 1 puff INH Q4H PRN #0 PRN Reason: SHORTNESS OF AIR/WHEEZING Duloxetine HCl 60 mg PO QAM #0 Labetalol [Normodyne] 100 mg PO BID Triamcinolone 0.5% Cream 15 G [Kenalog 0.5%] 1 applic TOP BID PRN PRN Reason: Prn Orders Discontinued Lovastatin 20 mg PO QAM #0 Discharge Instructions/Outpatient Orders: Final Provider Discharge Instructions Location: Determined By Patient - Disposition 01 Discharged Home, Self-Care - Attestation Attestation Narrative: 12/25/16 11:02 I have independently interviewed and examined patient prior to discharge. See my progress not from today for details. Medically stable for discharge to home.
[2016-12-25] MEDS ORDERED: INFLUENZA VAC QIV 2017-18 (Fluarix*)(>=3yo) 0.5ml IM ONE (11:16)
[2016-12-25] MEDS ORDERED: INFLUENZA VAC. INJ. ADMIN CHARGE INJ ONE (11:25)
== END 2016-12-25 11:41 | disposition home or self-care (01) | DRG 864 ==
LOC: ED 13:36 → SUATTDRO 17:25 → MED 17:25
PROVIDERS: ADMIT Internal Medicine; ATTEND Hospitalist